=== PATIENT | male | born 1970 | race Caucasian/White ===

== ENCOUNTER 2021-03-18 12:53 | Emergency (ER) | payer OTHER, SELFPAY ==
[2021-03-18] VITALS (9 sets, daily range): BP systolic 100–132; BP diastolic 65–82; PULSE 50–81; RESP 12–18; TEMP 36.4; O2SAT 97–100
--- NOTE | ~2021-03-18 | XR_ITS ---
XR abdomen/kub 1V 03/18/2021 13:22 INDICATION: Constipation. Right upper quadrant pain. TECHNIQUE: KUB COMPARISON: No prior studies for comparison. FINDINGS: Bowel gas pattern is normal. There is no evidence of free air, mass, organomegaly, ascites or obstruction. No abnormal calculi are seen. The bones appear intact. IMPRESSION: 1: No acute abdominal abnormality identified. Reviewed, dictated and finalized at location B.
--- NOTE | ~2021-03-18 | US_ITS ---
EXAMINATION: US right upper quadrant DATE: 03/18/2021 15:54 INDICATION: Abdominal pain. TECHNIQUE: Multiple grayscale and Doppler ultrasound images of the abdomen were obtained. COMPARISON: None FINDINGS: The visualized portions of the head and body of the pancreas are normal. The liver is claudio l without focal lesion. No liver surface nodularity. There is normal flow in main portal vein. The ga llbladder is contracted. No gallstones or gallbladder wall thickening. There is a positive sonographi c Eagle sign. The common duct is normal and measures 4 mm. IMPRESSION: 1. Normal right upper quadrant ultrasound. No etiology for the positive sonographic Eagle sign. Reviewed, dictated and finalized at location A. IMPRESSION: 1. Normal right upper quadrant ultrasound. No etiology for the positive sonogra phic Eagle sign.
--- NOTE | ~2021-03-18 | XR_ITS ---
EXAMINATION: XR chest 2V 03/18/2021 13:23 INDICATION: Weakness and abdomen pain. Hypertension. Smoker. PROCEDURE: PA and lateral views of the chest COMPARISON: No prior studies for comparison. FINDINGS: The lungs are clear. The cardiomediastinal silhouette is within normal limits. There are no pleural effusions. There is no pneumothorax suspected. IMPRESSION: 1: NO ACUTE CARDIOPULMONARY DISEASE. Reviewed, dictated and finalized at location B.
--- NOTE | 2021-03-18 12:55 | ECG_ITS ---
Measurements Intervals [place] Rate: 62 P: 63 WA: 143 QRS: 53 QRSD: 86 T: 59 QT: 372 QTc: 380 Interpretive Statements SINUS RHYTHM BASELINE ARTIFACT- I, II, III, AVR, AVL NORMAL ECG Electronically Signed On 03-18-2021 13:55:56 CDT by Karri Navas D.O.
[2021-03-18 13:15] LABS: Basophils Absolute Auto 0.1 K/mm3 (0.0-0.1); Basophils Percent Auto 0.9 % (0.2-1.2); Eosinophils Absolute Auto 0.2 K/mm3 (0-0.3); Eosinophils Percent Auto 1.9 % (0-4.4); Hematocrit 41.7 % (42.0-52.0); Hemoglobin 13.6 g/dL (14.0-18.0); Immature Granulocyte Absolute 0.01 K/mm3 (0.00-0.031); Immature Granulocyte Percent A 0.1 % (0-0.5); Lymphocytes Percent Auto 21.5 % (18.3-44.2); Mean Corpuscular HGB Conc 32.6 g/dl (32-36); Mean Corpuscular Hemoglobin 28.8 pg (26-34); Mean Corpuscular Volume 88.2 fl (80-100); Mean Platelet Volume 9.9 fl (7.4-10.4); Monocytes Absolute Auto 0.7 K/mm3 (0.1-0.6); Neutrophils Absolute Auto 6.4 K/mm3 (1.3-6.7); Neutrophils Percent Auto 68.6 % (45.5-73.1); Platelet Count Result 263 k/mm3 (150-375); Red Blood Count 4.73 M/mm3 (4.6-6.20); Red Cell Distribution Width 13.2 % (11.5-14.5); White Blood Count 9.3 K/mm3 (4.5-10.0)
[2021-03-18 13:24] LABS: Lipase 51 U/L (23-300)
[2021-03-18 13:26] LABS: Alanine Aminotransferase 16 U/L (4-50); Albumin Level 4.2 g/dL (3.5-5.1); Alkaline Phosphatase 58 U/L (38-126); Anion Gap 11 mmol/L (8-16); Aspartate Amino Transferase 26 U/L (17-59); Blood Urea Nitrogen 17 mg/dL (9-20); Calcium 9.3 mg/dL (8.4-10.2); Carbon Dioxide 22 mmol/L (22-30); Chloride 106 mmol/L (98-107); Estimated CRCL calculation 94 ml/min; Estimated Glomerular Filt Rate > 60; Glucose 105 mg/dL (75-110); Potassium 4.5 mmol/L (3.4-5.0); Sodium 139 mmol/L (137-145)
[2021-03-18 14:04] LABS: Add Urine Microscopic? YES; Appearance Urine Cloudy (Clear); Bacteria Urine Trace /hpf; Bilirubin Urine Negative (Negative); Blood Urine Negative (Negative); Color Urine Yellow (Yellow); Glucose Urine UA Negative (Negative); Ketones Urine Negative (Negative); Leukocyte Esterase Ur Negative LEU/UL (Negative); Mucus Urine Heavy /lpf; Nitrate Urine Negative (Negative); Protein Urine 1+ mg/dL (Negative); Specific Grav Ur 1.026 (1.001-1.035); Squamous Epithelial Cell Urine Occasional /hpf (Few); WBC Urine 0-3 /hpf
--- NOTE | 2021-03-18 15:17 | ED.GENADULT ---
HPI - General Adult General Chief complaint: Dizziness Stated complaint: abd pain, lethargy, dizzy Time Seen by Provider: 03/18/21 14:55 History of Present Illness HPI narrative: Patient is a 51-year-old male who presents ER with multiple complaints. First complaint is right upper quadrant abdominal pain. Ongoing over the last month. No radiation. Unsure of any alleviating factors. Not associated with eating or drinking. Normal bowel movements. Reports symptoms worsen if she leans forward. Denies any injury to his abdomen. No fevers or chills or sweats. Patient did have an episode of dizziness today. Reports he has had several episodes of dizziness and was recently seen at [facility] and diagnosed with vertigo. He was prescribed meclizine. At this time he is having no symptoms other than upper abdominal discomfort. He has not contacted his primary care physician to schedule further evaluation. Patient has had no chest pain or chest pressure. He is without dyspnea. Related Data Home Medications Medication Instructions Recorded Confirmed No Home Medications 03/18/21 03/18/21 Allergies Allergy/AdvReac Type Severity Reaction Status Date / Time No Known Allergies Allergy Verified 03/18/21 15:01 Review of Systems Review of Systems: All systems reviewed & are unremarkable except as noted in HPI and below Constitutional: Constitutional: Denies chills, Denies fever(s) and Denies weakness ENT: Reports dizziness, Denies nasal congestion and Denies sore throat Cardiovascular: Cardiovascular: Denies chest pain and Denies radiating jaw, neck or arm pain Respiratory: Respiratory: Denies cough and Denies dyspnea Gastrointestinal: Gastrointestinal: Reports abdominal pain, Denies diarrhea and Denies nausea PMFSH Past Medical History Medical History (Updated 03/18/21 @ 16:57 by Timothy Mendez MD) Healthy adult male Surgical History Surgical History (Updated 03/18/21 @ 16:56 by Timothy Mendez MD) No history of previous surgery Social History Social History (Updated 03/18/21 @ 16:56 by Timothy Mendez MD) Smoking status: Never smoker Gender identity (if verbalized by the patient): Male Exam Narrative: Exam Narrative: GENERAL: Well-appearing, well-nourished, and in no acute distress. HEAD: Normocephalic, atraumatic. CHEST: Clear to auscultation. No respiratory distress. HEART: Regular rate and rhythm. Normal peripheral pulses. ABDOMEN: Soft, nontender, nondistended. EXTREMITIES: Normal range of motion. No edema. SKIN: Warm, dry, no rash. NEURO: Alert and oriented x3. PSYCH: Normal mood and affect. Course Course Emergency Course: Unremarkable evaluation. Discharge home. Follow-up with PCP. Vital Signs Vital signs: Vital Signs Temperature 97.5 F L 03/18/21 13:02 Pulse Rate 73 03/18/21 13:02 Respiratory Rate 18 03/18/21 13:02 Blood Pressure 112/65 03/18/21 13:02 Pulse Oximetry 97 03/18/21 13:02 Temperature 97.5 F L 03/18/21 13:02 Pulse Rate 57 L 03/18/21 16:28 Respiratory Rate 12 03/18/21 15:49 Blood Pressure 127/76 03/18/21 16:28 Pulse Oximetry 98 03/18/21 15:49 Medical Decision Making Vital Signs Vital Signs: Vital Signs Temperature 97.5 F L 03/18/21 13:02 Pulse Rate 73 03/18/21 13:02 Respiratory Rate 18 03/18/21 13:02 Blood Pressure 112/65 03/18/21 13:02 Pulse Oximetry 97 03/18/21 13:02 Temperature 97.5 F L 03/18/21 13:02 Pulse Rate 57 L 03/18/21 16:28 Respiratory Rate 12 03/18/21 15:49 Blood Pressure 127/76 03/18/21 16:28 Pulse Oximetry 98 03/18/21 15:49 Lab Data Result diagrams: 03/18/21 13:08 03/18/21 13:08 Labs: Lab Results 03/18/21 03/18/21 03/18/21 Range/Units 13:08 13:08 13:08 WBC 9.3 (4.5-10.0) K/mm3 RBC 4.73 (4.6-6.20) M/mm3 Hgb 13.6 L (14.0-18.0) g/dL Hct 41.7 L (42.0-52.0) % MCV 88.2 (80-100) fl MCH 28.8
[2021-03-18] MEDS: SODIUM CHLORIDE 0.9% IV 1,000 ML 999 ML IV CONT (15:48)
== END 2021-03-18 17:12 | disposition home or self-care (01) ==
PROVIDERS: Emergency Medicine; Emergency Provider Emergency Medicine; PCP Family Medicine
DX: R10.13 Epigastric pain (principal)
CPT/HCPCS: 36415; 71046; 74018; 76705; 80053; 81001; 83690; 85025; 93005; 96360; 99284; J7030

== ENCOUNTER 2021-07-01 11:21 | Emergency (ER) | payer OTHER, SELFPAY ==
[2021-07-01 11:29] VITALS: BP 123/79; PULSE 61; RESP 16; TEMP 36.4; O2SAT 99
--- NOTE | 2021-07-01 12:07 | ED.GENADULT ---
HPI - General Adult General Chief complaint: Back Pain/Injury <Drake Ruiz PA-C - Last Filed: 07/01/21 12:13> Stated complaint: back pain <Drake Ruiz PA-C - Last Filed: 07/01/21 12:13> Time Seen by Provider: 07/01/21 11:47 <Drake Ruiz PA-C - Last Filed: 07/01/21 12:13> Source: patient, family and RN notes reviewed <Drake Ruiz PA-C - Last Filed: 07/01/21 12:13> Mode of arrival: ambulatory <Drake Ruiz PA-C - Last Filed: 07/01/21 12:13> Limitations: no limitations <Drake Ruiz PA-C - Last Filed: 07/01/21 12:13> History of Present Illness HPI narrative: Patient is a 51-year-old male who presents with mid lower back pain that began 2 days ago while getting out of bed notes that he may have twisted awkwardly denies other complaints specifically no loss of feeling or function of extremities or any bladder or bowel incontinence or any fever chills night sweats. On arrival patient in the room nondistressed does not appear uncomfortable presents with normal gait <Drake Ruiz PA-C - Last Filed: 07/01/21 12:13> Related Data Home medications: Home Medications Medication Instructions Recorded Confirmed No Home Medications 03/18/21 03/18/21 <Drake Ruiz PA-C - Last Filed: 07/01/21 12:13> Allergies/adverse reactions: Allergies Allergy/AdvReac Type Severity Reaction Status Date / Time No Known Allergies Allergy Verified 03/18/21 15:01 <Drake Ruiz PA-C - Last Filed: 07/01/21 12:13> Review of Systems Review of Systems: All systems reviewed & are unremarkable except as noted in HPI and below <Drake Ruiz PA-C - Last Filed: 07/01/21 12:13> PMFSH Past Medical History Medical History: Medical History Healthy adult male <LILI Castellano Last Filed: 07/01/21 12:13> Surgical History Surgical History: Surgical History No history of previous surgery <Drake Ruiz PA-C - Last Filed: 07/01/21 12:13> Social History Social History: Social History Smoking status: Never smoker Gender identity (if verbalized by the patient): Male <Drake Ruiz PA-C - Last Filed: 07/01/21 12:13> Exam Narrative: GENERAL: Well-appearing, well-nourished, and in no acute distress. HEAD: Normocephalic, atraumatic. EYES: PERRLA and EOMI. ENT: Nares clear, no rhinorrhea or epistaxis. Mucous membranes moist. CHEST: Clear to auscultation. No respiratory distress. No wheezes rales or rhonchi HEART: Regular rate and rhythm. No murmur heard. EXTREMITIES: Normal range of motion. No edema. Mid lumbar tenderness to palpation no other deformities SKIN: Warm, dry, no rash. NEURO: No focal deficits. Alert and oriented x3. Cranial nerves II through XII grossly intact. Normal speech and gait PSYCH: Normal mood and affect. <Drake Ruiz PA-C - Last Filed: 07/01/21 12:13> Course Course Emergency Course: Patient presented with low back pain no concerning findings otherwise no signs of infection ABCs and vital signs intact and stable be sent home on medications with primary care follow-up he agrees with this treatment plan <Drake Ruiz PA-C - Last Filed: 07/01/21 12:13> Vital Signs Vital signs: Vital Signs Temperature 97.6 F 07/01/21 11:29 Pulse Rate 61 07/01/21 11:29 Respiratory Rate 16 07/01/21 11:29 Blood Pressure 123/79 07/01/21 11:29 Pulse Oximetry 99 07/01/21 11:29 Temperature 97.6 F 07/01/21 12:41 Pulse Rate 61 07/01/21 11:29 Respiratory Rate 16 07/01/21 11:29 Blood Pressure 123/79 07/01/21 11:29 Pulse Oximetry 99 07/01/21 11:29 <Drake Ruiz PA-C - Last Filed: 07/01/21 12:13> Medical Decision Making MDM Narrative Medical decision making narrative:
[2021-07-01] MEDS: KETOROLAC (*BKC) 60 MG/2 ML VIAL IM (12:26)
[2021-07-01 12:41] VITALS: TEMP 36.4
== END 2021-07-01 12:36 | disposition home or self-care (01) ==
PROVIDERS: Emergency Provider General Practice; PCP Family Medicine
DX: M54.5 Low back pain (principal)
CPT/HCPCS: 96372; 99283; J1885

== ENCOUNTER 2021-07-03 11:38 | Emergency (ER) | payer OTHER, SELFPAY ==
[2021-07-03 11:48] VITALS: BP 124/70; PULSE 75; RESP 16; TEMP 36.4; O2SAT 100
--- NOTE | 2021-07-03 12:28 | PC.NURSE ---
1209- pt noted ambulating out of ED . Friend at side. No distress noted.
== END 2021-07-04 02:35 | disposition left against medical advice (07) ==
LOC: ANHED 12:37
PROVIDERS: PCP Family Medicine
DX: M54.5 Low back pain (principal)
CPT/HCPCS: 99199

== ENCOUNTER 2023-11-07 09:46 | Outpatient (CLI) | payer OTHER, SELFPAY ==
[2023-11-07 18:47] LABS: Alanine Aminotransferase 23 U/L (6-50); Albumin Level 4.3 g/dL (3.5-5.1); Alkaline Phosphatase 61 U/L (38-126); Anion Gap 5 mmol/L (8-16); Aspartate Amino Transferase 29 U/L (17-59); Bilirubin,Total 0.8 mg/dL (0.2-1.3); Blood Urea Nitrogen 16 mg/dL (9-20); Calcium 9.4 mg/dL (8.4-10.2); Carbon Dioxide 28 mmol/L (22-30); Chloride 104 mmol/L (98-107); Cholesterol 239 mg/dL (0-200); Estimated Glomerular Filt Rate > 60; Glucose 105 mg/dL (65-110); HDL Direct 42 mg/dL; Sodium 137 mmol/L (137-145); Triglycerides 90 mg/dL (<150)
[2023-11-07 19:00] LABS: LDL Cholesterol Direct 169 mg/dL
[2023-11-07 19:16] LABS: Prostate Specific Antigen 3.2 ng/mL (< OR = 4.0)
[2023-11-07 19:21] LABS: Basophils Absolute Auto 0.1 K/mm3 (0.0-0.1); Basophils Percent Auto 0.5 % (0.2-1.2); Eosinophils Absolute Auto 0.2 K/mm3 (0-0.3); Eosinophils Percent Auto 1.9 % (0-4.4); Hematocrit 42.2 % (42.0-52.0); Hemoglobin 13.2 g/dL (14.0-18.0); Immature Granulocyte Absolute 0.01 K/mm3 (0.00-0.031); Immature Granulocyte Percent A 0.1 % (0-0.5); Lymphocytes Absolute Auto 2.36 K/mm3 (0.9-3.2); Lymphocytes Percent Auto 24.5 % (18.3-44.2); Mean Corpuscular HGB Conc 31.3 g/dl (32-36); Mean Corpuscular Hemoglobin 28.1 pg (26-34); Mean Corpuscular Volume 89.8 fl (80-100); Mean Platelet Volume 10.5 fl (7.4-10.4); Monocytes Absolute Auto 0.7 K/mm3 (0.1-0.6); Monocytes Percent Auto 7.6 % (2.6-8.5); Neutrophils Absolute Auto 6.3 K/mm3 (1.3-6.7); Neutrophils Percent Auto 65.4 % (45.5-73.1); Platelet Count Result 300 k/mm3 (150-375); Red Cell Distribution Width 14.2 % (11.5-14.5); White Blood Count 9.6 K/mm3 (4.5-10.0)
[2023-11-07 21:30] LABS: Hemoglobin A1C 5.9 % (<5.7)
== END 2023-11-07 09:47 | disposition home or self-care (01) ==
LOC: ANHGOSHLAB 09:48
PROVIDERS: PCP Internal Medicine; Visit Provider Nurse Practitioner
DX: Z12.5 Encounter for screening for malignant neoplasm of prostate (principal); E11.9 Type 2 diabetes mellitus without complications
CPT/HCPCS: 36415; 80053; 80061; 83036; 84153; 85025; G0103

== ENCOUNTER 2024-02-06 07:35 | Outpatient (CLI) | payer OTHER, SELFPAY ==
--- NOTE | ~2024-02-06 | MR_ITS ---
MRI of the cervical spine Clinical History: Radiculopathy Technique: Axial T2-weighted and gradient images, and sagittal T1-weighted, T2-weighted, and STIR radhika ges were acquired. Findings: There is no fracture or subluxation of the cervical spine. No suspicious bone marrow signal abnormality seen. At C2-C3, there is minimal disc bulge. There is mild facet arthropathy. There is probable mild left n eural foraminal narrowing. Right neural foramen preserved. No central canal stenosis or cord compress ion. At C3-C4, there is degenerative disc narrowing with disc osteophyte complex and mild canal stenosis, but no mumtaz cord compression. There is bilateral facet arthropathy and bilateral neural foraminal na rrowing. At C4-C5, there is mild disc osteophyte complex, without spinal canal stenosis or cord compression. T here is bilateral facet arthropathy with bilateral neural foraminal narrowing, left worse than right. At C5-C6, there is moderate degenerative disc narrowing. There is disc osteophyte complex with modera te to moderate canal stenosis and minimal ventral cord flattening. There is bilateral neural foramina l narrowing with associated bilateral facet arthropathy. At C6-C7, there is moderate degenerative disc narrowing. There is minimal disc osteophyte complex, wi thout mumtaz canal stenosis or cord compression. There is bilateral neural foraminal narrowing with bi lateral facet arthropathy. No abnormal signal seen in the spinal cord. Paravertebral soft tissues are unremarkable. Impression: Moderate degenerative spondylosis throughout the cervical spine, as detailed above. Reviewed, dictated and finalized at [facility]. Impression: Moderate degenerative spondylosis throughout the cervical spine, as detailed ab ruddye.
== END 2024-02-06 07:36 | disposition home or self-care (01) ==
PROVIDERS: PCP Nurse Practitioner; Visit Provider Nurse Practitioner
DX: M47.22 Other spondylosis with radiculopathy, cervical region (principal)
CPT/HCPCS: 72141

== ENCOUNTER 2024-07-11 08:48 | Outpatient (NON) | payer OTHER, SELFPAY | END 2024-07-11 08:49 | disposition home or self-care (01) | LOC: ANHLAB 07-12 08:49 | PROVIDERS: PCP Internal Medicine; Visit Provider Internal Medicine | DX: Z12.11 Encounter for screening for malignant neoplasm of colon (principal); D12.5 Benign neoplasm of sigmoid colon | CPT/HCPCS: 88305 ==

== ENCOUNTER 2024-07-11 11:10 | Day surgery (SDC) | payer OTHER, SELFPAY ==
[2024-06-28 06:08] VITALS: BMI 25.1
[2024-06-28 14:51] VITALS: BMI 25.0
[2024-07-11 11:38] VITALS: BP 101/67; PULSE 61; RESP 16; TEMP 37; O2SAT 98
[2024-07-11] MEDS: LACTATED RINGERS 1,000 ML 150 ML IV CONT (11:43)
--- NOTE | 2024-07-11 12:20 | PM.HPGS ---
History of Present Illness History of Present Illness Consent: Risks, benefits, and alternatives have been discussed and questions answered. Patient agrees to proceed with procedure. Chief complaint: Screening Neoplasm of Colon Narrative: Obed Marvin is a 54 year old male presents for screening colonoscopy. Patient's current weight appetite and bowel movements are normal. Patient denies abdominal pain. He has had no bleeding. Family history is noncontributory. Patient has a past medical history of Hodgkin's lymphoma. Currently followed in [place]. Review of Systems Review of Systems: All systems reviewed & are unremarkable except as noted in HPI and below PMFSH Past Medical History Medical History (Updated 07/11/24 @ 06:59 by Roger Hoffman DO) Cardiomyopathy Diabetes History of blood clots DVT right arm 2022 Hodgkins lymphoma 2023 Surgical History Surgical History No history of previous surgery Social History Social History (Updated 06/20/24 @ 13:44 by Brittney Main CMA) Smoking status: Current some day smoker Tobacco type: cigarettes Second hand tobacco smoke exposure: Yes Additional smoking assessment comments: 2 packs per week Alcohol intake: never Substance use: never Substance use type: does not use Do You Feel Safe in your Home?: Yes Lack of Transportation: No Lack of Food: Never True Current Housing: I Have Housing Concerned About Future Housing: No Difficulty Paying Gas/Electric Bills: No Difficulty Paying for Meds: No Currently Unemployed: No Education: High School Diploma/GED Difficulty w/ Childcare or Family Care: No Living arrangements: with family Gender identity (if verbalized by the patient): Male Spiritual care concerns: No Meds Home Medications and Allergies Home Medications Medication Instructions Recorded Confirmed Type ferrous sulfate 1 cap PO DAILY 06/20/24 07/11/24 History ibuprofen 200 mg tablet 200 mg PO Q6H PRN Pain, Mild 06/20/24 07/11/24 History levothyroxine 25 mcg tablet 25 mcg PO DAILY 06/20/24 07/11/24 History Allergies Allergy/AdvReac Type Severity Reaction Status Date / Time No Known Allergies Allergy Verified 07/11/24 11:37 Vital Signs Vital Signs - 24 hr 07/11/24 11:38 Temperature 98.6 F Pulse Rate 61 Respiratory Rate 16 Blood Pressure 101/67 Pulse Oximetry 98 Oxygen Delivery Room Air Exam Narrative: Physical exam reveals patient to be alert. Vital signs stable. HEENT exam is unremarkable. Patient is anicteric. Lungs are clear to auscultation and percussion heart is without murmur or extra sounds. Abdominal exam bowel sounds are present soft nontender with no organomegaly. Digital external rectal exam normal. Assessment and Plan Assessment and plan (1) Screening for colon cancer: Code(s): Z12.11 - Encounter for screening for malignant neoplasm of colon Status: Acute Assessment and Plan: Patient presents for neoplasia screening colonoscopy. Appears to be at average risk for colon polyps. (2) Hodgkins lymphoma: Qualifiers: Hodgkin lymphoma type: unspecified type Lymphoma site: lower extremity Qualified Code(s): C81.95 - Hodgkin lymphoma, unspecified, lymph nodes of inguinal region and lower limb Code(s): C81.90 - Hodgkin lymphoma, unspecified, unspecified site Status: Acute
--- NOTE | 2024-07-11 13:24 | P.PNAN_ITS ---
Anes - Initial Pre Proc Eval Procedure: Operation Date: 07/11/24 13:00 Proposed Procedures p Screening Colonoscopy - Ezekiel Ramsey MD Date/Time: 07/11/24 13:24 Surgeon: Ezekiel Ramsey MD Pre Op Diagnosis: Screening Neoplasm of Colon Patient Data Age: 54 Gender: M Height: 1.75 m Weight: 73.75 kg Last Vital Signs Temp 37.0 C 07/11/24 11:38 Pulse 61 07/11/24 11:38 Resp 16 07/11/24 11:38 BP 101/67 07/11/24 11:38 Pulse Ox 98 07/11/24 11:38 O2 Del Method Room Air 07/11/24 11:38 Allergies Allergy/AdvReac Type Severity Reaction Status Date / Time No Known Allergies Allergy Verified 07/11/24 11:37 Home Medications Medication Instructions Recorded Confirmed Type ferrous sulfate 1 cap PO DAILY 06/20/24 07/11/24 History ibuprofen 200 mg tablet 200 mg PO Q6H PRN Pain, Mild 06/20/24 07/11/24 History levothyroxine 25 mcg tablet 25 mcg PO DAILY 06/20/24 07/11/24 History Patient hx anesthesia problems: none Family hx anesthesia problems: none Results Review: All pre-operative results and documents have been reviewed as part of the pre- operative evaluation. [facility] Past Medical History Medical History (Updated 07/11/24 @ 06:59 by Roger Hoffman DO) Cardiomyopathy Diabetes History of blood clots DVT right arm 2022 Hodgkins lymphoma 2023 Surgical History Surgical History No history of previous surgery Social History Social History (Updated 06/20/24 @ 13:44 by Brittney Main CMA) Smoking status: Current some day smoker Tobacco type: cigarettes Second hand tobacco smoke exposure: Yes Additional smoking assessment comments: 2 packs per week Alcohol intake: never Substance use: never Substance use type: does not use Do You Feel Safe in your Home?: Yes Lack of Transportation: No Lack of Food: Never True Current Housing: I Have Housing Concerned About Future Housing: No Difficulty Paying Gas/Electric Bills: No Difficulty Paying for Meds: No Currently Unemployed: No Education: High School Diploma/GED Difficulty w/ Childcare or Family Care: No Living arrangements: with family Gender identity (if verbalized by the patient): Male Spiritual care concerns: No Anes - Eval Final PreProcedure Day of Procedure 07/11/24 13:24 Patient weight: normal Heart: regular rate and rhythm Lungs: clear to auscultation and normal air movement Airway: Mallampati scale class II Neurological: alert and oriented Last oral intake: >/= 8 hours ASA classification: III Emergent: no Anesthetic plan: proceed Anesthesia type and monitoring: general GIVS and standard monitoring Results Review: All pre-operative results and documents have been reviewed as part of the pre- operative evaluation. Informed Consent: The patient's anesthetic plan and its attendant risks and benefits were discussed with the patient/family/POA. Questions were solicited and answers provided to the satisfaction of the patient/family/POA.
[2024-07-11 13:53] VITALS: BP 93/66; PULSE 69; RESP 16; O2SAT 98
--- NOTE | 2024-07-11 14:02 | WPDANESPN ---
Anes - Prog Note Post-Op Date/Time: 07/11/24 14:02 Cardiovascular status: normal Respiratory status: normal Airway patency: baseline Mental status: baseline Post-Op hydration status: normal Vital Signs: Last Vital Signs Temp 37.0 C 07/11/24 11:38 Pulse 69 07/11/24 13:53 Resp 16 07/11/24 13:53 BP 93/66 L 07/11/24 13:53 Pulse Ox 98 07/11/24 13:53 O2 Del Method Room Air 07/11/24 13:53 Pain Score (VAS): 0 I/O: Intake & Output 07/10/24 07/11/24 07/11/24 23:59 07:59 15:59 Intake Total 700 Balance 700 Post-procedural complaints: none Patient Feedback: Patient satisfied with anesthetic care. Other Findings: Patient vital signs back to baseline. Patient denies nausea and vomiting. Patient's pain under control. Patient OK for discharge.
[2024-07-11 14:03] VITALS: BP 101/64; PULSE 63; RESP 15; O2SAT 98
[2024-07-11 14:13] VITALS: BP 107/68; PULSE 50; RESP 15; O2SAT 99
== END 2024-07-11 14:21 | disposition home or self-care (01) ==
PROVIDERS: PCP Internal Medicine; Visit Provider Internal Medicine Gastroenterology
PROC: 0DJD8ZZ Inspection of Lower Intestinal Tract, Via Natural or Artificial Opening Endoscopic (ICD-10-PCS; CPT 45378; principal; 2024-07-11 13:00)
DX: Z12.11 Encounter for screening for malignant neoplasm of colon (principal); D12.5 Benign neoplasm of sigmoid colon
CPT/HCPCS: 45385

== ENCOUNTER 2025-01-14 10:49 | Emergency (ER) | payer OTHER, SELFPAY ==
[2025-01-14 11:01] VITALS: BP 123/75; PULSE 62; RESP 16; TEMP 36.5; O2SAT 99
--- NOTE | 2025-01-14 11:14 | ED.EAR ---
HPI - Ear Problem General Chief complaint: Ear Stated complaint: Ear Pain/Rash Source: patient Mode of arrival: ambulatory Limitations: no limitations History of Present Illness HPI Narrative: 54 y/o male with hx diabetes and hodgkins lymphoma presented for 2 concerns. Pt reports bilateral ear pain and rash to right lower abdomen. Endorses itchy red rash to right lower abdomen x2 weeks. Says it was improving with benadryl ointment, but flared up yesterday and is spreading. Denies pain or drainage to the rash. Denies lip, tongue, or throat swelling, shortness of breath or wheezing. Denies changes to soap, detergent, lotion, or any other exposures. No one else in the house or any contacts with similar symptoms. Pt also reports chronic ear drainage and right ear ringing, [facility]. Says he started with ear pain which is unusual for him, and feels like he has sores in the ears. Says the ears have not been draining like normal. Endorses occasional dizziness and headache. MD Complaint: ear pain Related Data Allergies Allergy/AdvReac Type Severity Reaction Status Date / Time No Known Allergies Allergy Verified 08/13/24 18:26 Review of Systems Review of Systems: CONSTITUTIONAL: Denies malaise, chills, or fever. EYES: Denies visual changes, redness, or discharge. ENT: Denies rhinorrhea, congestion, sinus pain, and sore throat. Reports ear pain, drainage, ringing CARDIOVASCULAR: Denies chest pain, palpitations, or edema. RESPIRATORY: Denies cough or dyspnea. GASTROINTESTINAL: Denies abdominal pain, nausea, vomiting, diarrhea SKIN: reports rash, itching. MUSCULOSKELETAL: Denies myalgia. NEUROLOGIC: Denies headache. All systems reviewed & are unremarkable except as noted in HPI and below [facility] Past Medical History Medical History (Updated 01/14/25 @ 11:30 by Yissel Hook APRN) Cardiomyopathy Diabetes Hodgkins lymphoma 2023 History of blood clots DVT right arm 2022 Surgical History Surgical History No history of previous surgery Social History Social History (Updated 01/14/25 @ 11:37 by Yissel Hook APRN) Smoking status: Current some day smoker Tobacco type: cigarettes Second hand tobacco smoke exposure: Yes Additional smoking assessment comments: 1PPD (01/14/25) Alcohol intake: never Substance use: never Substance use type: does not use Do You Feel Safe in your Home?: Yes Lack of Transportation: No Lack of Food: Never True Current Housing: I Have Housing Concerned About Future Housing: No Difficulty Paying Gas/Electric Bills: No Difficulty Paying for Meds: No Currently Unemployed: No Education: High School Diploma/GED Difficulty w/ Childcare or Family Care: No Living arrangements: with family Gender identity (if verbalized by the patient): Male Spiritual care concerns: No Comments At time of signature, agree with nursing past medical, surgical, social and family history. There is no relevant family history pertinent to the presenting complaint Exam Narrative: GENERAL: Well-appearing EYES: conjunctivae clear ENT: Nares clear. Mucous membranes moist. TMs pearly andrews with dull light reflex and purulent effusion bilaterally, Left TM with chronic hole; no tragal tenderness. NECK: Supple. No lymphadenopathy CHEST: Clear to auscultation, breath sounds equal. HEART: Regular rate and rhythm. SKIN: Warm, dry, RLQ with erythematous irregular area of light erythema, slightly raised. No blisters/vesicles, nontender. NEURO: Alert and oriented x3. PSYCH: Normal mood and affect Course Course Emergency Course: Patient is aware of diagnosis, understands and agrees to treatment plan. Anticipatory guidance given. Patient agrees to follow-up as directed and is aware of reasons to seek care at the emergency department. Portions of this record may have been created with voice recognition software Level of Care: Express Care Visit Vital Signs Vital signs: Vital Signs Temperature 97.7 F 01/14/25 11:01 Pulse Rate 62 01/14/25 11:01 Respiratory Rate 16 01/14/25 11:01 Blood Pressure 123/75 01/14/25 11:01 Pulse Oximetry 99 01/14/25 11:01 Temperature 97.7 F 01/14/25 11:01 Pulse Rate 62 01/14/25 11:01 Respiratory Rate 16 01/14/25 11:01 Blood Pressure 123/75 01/14/25 11:01 Pulse Oximetry 99 01/14/25 11:01 Reviewed Medical Decision Making MDM Narrative Medical decision making narrative: Discussed physical exam findings consistent with bilateral AOM and right lower quadrant dermatitis. Reviewed Rx. Advised supportive measures and signs/symptoms to go to the ER. Patient is appropriate for outpatient treatment and follow-up. Differential Diagnosis Differential Diagnosis: Coronavirus, strep pharyngitis, allergic rhinitis, upper respiratory tract infection, sinusitis, rhinosinusitis, nasopharyngitis, viral pharyngitis, otitis media, otitis externa, eustachian tube dysfunction, foreign body, cerumen impaction. Vital Signs Vital Signs: Vital Signs Temperature 97.7 F 01/14/25 11:01 Pulse Rate 62 01/14/25 11:01 Respiratory Rate 16 01/14/25 11:01 Blood Pressure 123/75 01/14/25 11:01 Pulse Oximetry 99 01/14/25 11:01 Temperature 97.7 F 01/14/25 11:01 Pulse Rate 62 01/14/25 11:01 Respiratory Rate 16 01/14/25 11:01 Blood Pressure 123/75 01/14/25 11:01 Pulse Oximetry 99 01/14/25 11:01 Discharge Plan Discharge Clinical Impression: Otitis media, Dermatitis Patient Disposition: Home Condition: Stable Instructions: Antibiotic Form, Ear Infection (ED), Dermatitis (ED) Additional Instructions: Rash: Wash with gentle soap and water only. Use skin cream such as Benadryl or calamine to reduce itchiness Take Zyrtec or Claritin according to package directions Take steroid as directed Avoid scratching when possible to prevent worsening of the condition and disruption of the skin that could lead to bacterial infection To relieve itching, place a cool washcloth or some ice over the area that itches, rather than scratching Avoid scented products (soap, lotion, detergent etc) Go to the ER if rash worsens or you have chest pain, trouble breathing, become hoarse, or start wheezing, develop belly cramps, vomiting or feel dizzy. Ears: Take antibiotics as directed. antihistamine such as Benadryl, Zyrtec or Paz for sinus congestion Tylenol 1000mg every 8 hours as needed to reduce pain Please schedule a follow-up visit with your personal physician today. If your symptoms persist, change or worsen significantly, go to the emergency department for further evaluation. Patient Language: Nepali Prescriptions: New methylprednisolone [Medrol (Hai)] 4 mg tablets,dose pack See Rx Instructions .ROUTE .COMPLEX Qty: 21 0RF Rx Instructions: orally per package directions amoxicillin-pot clavulanate 875-125 mg tablet 1 tablet PO Q12H 7 Days Qty: 14 0RF Follow-up/Referrals: Casey Bales DO [Primary Care Provider] - Time of Disposition: 11:31
== END 2025-01-14 11:36 | disposition home or self-care (01) ==
PROVIDERS: Emergency Provider Nurse Practitioner Family; PCP Internal Medicine
DX: H66.93 Otitis media, unspecified, bilateral (principal); L30.9 Dermatitis, unspecified; F17.210 Nicotine dependence, cigarettes, uncomplicated; I42.9 Cardiomyopathy, unspecified; E11.9 Type 2 diabetes mellitus without complications; Z86.718 Personal history of other venous thrombosis and embolism; Z85.71 Personal history of Hodgkin lymphoma
CPT/HCPCS: 99213; G0463

== ENCOUNTER 2025-03-11 13:40 | Outpatient (CLI) | payer OTHER, SELFPAY ==
--- OUTSIDE RECORDS SUMMARY | 2025-03-11 13:56 | XMS_ITS | Clinical Summary ---
Author Organization [facility] Medical Office Building [address] Address [address] [place] [address] Care Team Providers Care Mri Technologist Name Role Phone Moshe Nina MD Unavailable Sebas Cruz MD Unavailable [phone] Casey Bales DO Primary Care Provider [phone] Allergies No known active allergies Medications ergocalciferol (VITAMIN D) 50,000 unit capsule Take 1 capsule (50,000 Units total) by mouth 06/02/20 22 Active tobramycin-dexAMET Hasone (TOBRADEX) ophthalmic solution Administer 2 drops into both eyes 4 (four) times a day IF NO IMPROVEMENT AFTER 2 DAYS SEE PCP OR MAJOR GIFTS MANAGER . IF IMPROVES AFTER 2 DAYS DECREASE TO ONE DROP IN EACH EYE 4 TIMES A DAY 5-7 DAYS 5 mL 12/24/19 23 Active Additional Information Patient not taking.Reported on 08/17/2024 apixaban (ELIQUIS) 5 mg tabletIndications: Venous Thrombosis Take 1 tablet (5 mg total) by mouth 2 (two) times a day 60 tablet 5 03/16/20 23 Active Additional Information Patient not taking.Reported on 08/17/2024 docusate sodium (Colace) 100 mg capsuleIndications :constipation Take 1 capsule (100 mg total) by mouth 2 (two) times a day for 14 days 28 capsule 05/04/20 23 Active Additional Information Patient not taking.Reported on 08/17/2024 atorvastatin (LIPITOR) 10 mg tablet 10 MG ORALLY EVERY DAY AT BEDTIME Active baclofen (LIORESAL) 10 mg tablet Take 1 tablet (10 mg total) by mouth 02/03/20 24 Active cholecalciferol 25 mcg (1,000 unit) tablet 1 tablet (1,000 Units total) 02/17/20 23 Active varenicline tartrate (CHANTIX) 1 mg tablet Take 1 tablet (1 mg total) by mouth 2 (two) times a day 11/07/19 24 Active ferrous sulfate ER (SLOW IRON) 140 mg (45 mg of elemental iron) tabletIndications: Iron Deficiency Anemia Take 1 tablet (140 mg total) by mouth 2 (two) times a day with meals 60 tablet 2 05/07/20 24 Active Additional Information Patient not taking.Reported on 12/28/2024 Slow Fe 137 mg (45 mg iron) tablet extended release 05/09/20 24 Active levothyroxine (SYNTHROID) 25 mcg tabletIndications: Iron deficiency anemia, unspecified iron deficiency anemia type,Other specified hypothyroidism TAKE 1 TABLET (25 MCG TOTAL) BY MOUTH CERTIFIED FINANCIAL PLANNER BEFORE BREAKFAST 30 tablet 2 08/15/20 24 Active Additional Information Patient not taking.Reported on 12/28/2024 meloxicam (MOBIC) 15 mg tablet TAKE 1/2 TABLET BY MOUTH TWO TIMES DAILY 30 tablet 09/11/20 24 Active Additional Information Patient not taking.Reported on 12/28/2024 Active Problems Patient Care Coordination No te Formatting of this note migh t be different from the original. Upcoming Clinic Visit: 08/20/24 R RF lac c/f flexor tendon injury. Possible Op discussion XR's (Orders Signed) Problem Noted Date Diagnosed Date Alcohol abuse 09/03/2024 Alcohol dependence, continuous 09/03/2024 Amphetamine and psychostimulant dependence 09/03 Anemia 09/03/2024 Anxiety state 09/03/2024 Cannabis abuse 09/03/2024 Cannabis dependence 09/03/2024 Complex posttraumatic stress disorder 09/03/2024 Exposure to potentially hazardous substance 08/11 Unspecified hearing loss, unspecified ear 2023 Hearing loss 09/03/2024 Heel pain 09/03/2024 Lack of housing 09/03/2024 Leukopenia 09/03/2024 Major depression 09/03/2024 Mixed conductive and sensorineural hearing loss, bilateral 09/03/2024 Moderate episode of recurrent major depressive d isorder 09/03/2024 Neck pain 09/03/2024 Proteinuria 09/03/2024 Type 2 diabetes mellitus 09/03/2024 Vitamin D deficiency 09/03/2024 Laceration of flexor muscle, fascia and tendon of right little finger at wrist and hand level, initial encounter 08/17/2024 Left groin pain 05/10/2024 Assessment & Plan (05/10/2024 3:34 PM CDT): He does have some pain on palpation but I do not notice any clear-cut hernia. I will review the MRI with Radiology. After this we will call and discuss further course of action with the patient. He is in understanding of the plan. Until then he can try ice and heat or an anti-inflammatory. He does seem to think that it started after some increasing activity so it may just be musculoskeletal. Nodule of parotid gland 02/14/2024 Assessment & Plan (02/14/2024 8:03 AM CDT): Avoid ear cleaning techniques Avoid water to ears Call with ear drainage Ultrasound of the Parotid glands ATTN on the Right Parotid Biopsy based on these findings Personal interpretation of PET scan: minimal uptake diffusely along nasopharynx with prominence of the right lateral nasopharynx, right tail of parotid uptake Nasal disorder 02/14/2024 Assessment & Plan (02/14/2024 8:00 AM CDT): Inflammation without masses or lesions Adjustment and management of vascular access dev ice 03/22/2023 CINV (chemotherapy-induced nausea and vomiting) 10/18/2022 Chemotherapy induced neutropenia 09/15/2022 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 We will set him up for a Port-A-Cath placement for initiation of chemotherapy. We have discussed at times wound healing can be an issue as the cancer may impair this. We will see what happens as they initiate chemotherapy. He is in understanding of the plan. Lymphadenopathy, inguinal 05/17/2022 Assessment & Plan (06/08/2022 8:49 AM CDT): We will set the patient up for an excision of a left inguinal lymph node. Postoperative complications such as wound infection and opening have been discussed. We discussed timing of pathology returned and possible outcomes for the pathology results. They are in understanding of the plan. Dental abscess 01/19/2022 Left atrial enlargement 01/09/2021 Vertigo 01/09/2021 Tobacco dependence syndrome 11/20/2018 Abnormal echocardiogram 11/20/2018 Acute bronchitis 10/30/2018 Cardiomyopathy 10/30/2018 Helicobacter pylori gastrointestinal tract infec tion 10/30/2018 Sleep apnea 10/30/2018 Neurological deficit present 01/20/2018 Urinary tract infectious disease 01/20/2018 Fatigue 06/23/2017 Gastroesophageal reflux disease 06/23/2017 Hyperlipidemia 06/23/2017 Prediabetes 06/23/2017 Subclinical hypothyroidism 06/23/2017 Bipolar I disorder 06/02/2017 Cervical radiculopathy 06/02/2017 Elevated blood-pressure read ing without diagnosis of hypertension 06/02/2017 Muscle spasms of neck 06/02/2017 Osteoarthritis of knee 06/02/2017 Shortness of breath 06/02/2017 Encounters Date Type Department Care Team Description 12/28/2024 2:15 PM CDT Office Visit 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 [address] [place] [address] Medical Office [facility] [address] [place] [address] Sarah Barrow CLT 12/11/[address] [facility] [address] [place] [address] Office [facility] [address] [place] [address] Sarah Barrow, CLT from Last 3 Months Immunizations Immunization Administration Dates Next Due Hep A, Adult 07/11/2019 Influenza, Quadrivalent, Rec ombinant, Egg Free, Preservative Free, Intramuscular 06/01/2017 Influenza, Quadrivalent, Spl it, Preservative Free, Intradermal 06/01/2017 Influenza, Trivalent, IM (MDV) 07/11/2019 Influenza, Trivalent, Preser vative Free, Intramuscular 07/11/2019,09/11/2015 Influenza, Unspecified 08/10/2018,06/29/2013, Moderna SARS-CoV-2 Monovalen t Vaccination (12+ YRS) 04/01/2021,03/04/2021 Pneumococcal Polysaccharide PPV23 03/22/2019, Td, Unspecified 09/11/2012 Tdap 06/20/2024,02/07/2019,06/01/2017 Surgical History Surgery Date Site/Laterality Comments LYMPH NODE BIOPSY 06/15/2022 Left Inguinal Medical History Medical History Date Comments Thyroid disease Lymphadenopathy Lymphadenopathy, inguinal 05/17/2022 Sleep apnea Depression 2020 Anxiety Lymphoma, Hodgkin's (HCC) 06/18/2022 Nodular lymphocyte predominant Hodgkin lymphoma (HCC) 07/02/2022 Chemotherapy induced neutropenia 09/15/2022 Lung disease DVT of axillary vein, acute (HCC) right arm Diabetes mellitus (HCC) CINV (chemotherapy-induced nausea and vomiting) 10/18/2022 Social History Tobacco Use Types Packs/Day Years Used Date Smoking Tobacco: Every Day Cigarettes 0.4 2.7 Started: 06/24/2022 Passive Smoke Exposure: Current Smokeless Tobacco: Current Chew Tobacco Cessation:Ready to Q uit: Not Asked; Counseling Given: Not Answered Alcohol Use Standard Drinks/Week Comments Not Currently 0 (1 standard drink = 0.6 oz pur e alcohol) AUDIT-C Answer Date Recorded Q1: How often do you have a drink containing alcohol? Never 12/28/2024 Q2: How many drinks containi ng alcohol do you have on a typical day when you are drinking? Patient does not drink Q3: How often do you have si x or more drinks on one occasion? Never 12/28/2024 Hunger Vital Sign Answer Date Recorded Within the past 12 months, y ou worried that your food would run out before you got the money to buy more. Never true 08/17/20 24 Within the past 12 months, t he food you bought just didn't last and you didn't have money to get more. Never true 08/17/2024 Personal Safety Answer Date Recorded Have you ever been in or are you currently in a harmful physical or emotional relationship or is someone making you feel afraid or unsafe? 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 Inhaled Oxygen Concentration - - Weight 77.3 kg (170 lb 6.4 oz) 12/28/2024 2:03 P M CDT Height 175.3 cm (5' 9) 12/28/2024 2:03 PM CDT Body Mass Index 25.16 12/28/2024 2:03 PM CDT Plan of Treatment Health Maintenance Due Date Last Done Comments Albumin Creatinine Ratio, Urine 1969 Colon Cancer Screening-Colonoscopy 1969 Depression Screening 1969 Hemoglobin A1C 1969 Dilated Eye Exam 1969 Foot Exam 1969 Lipid Panel 1969 Hepatitis B Screening 1987 Regular Well Visit/Exam 18-64 1987 Zoster Vaccine (1 of 2) 1988 Pneumococcal vaccine <65 (3 of 3 - PCV) 03/22/2020 03/22/2019, 06/01/2017 Covid-19 Vaccine (3 - Modern a risk series) 04/29/2021 04/01/2021, 03/04/2021 Influenza Vaccine (Season Ended) 2025 07/11/2019, 07/11/2019, 08/10/2018, Additional history exists eGFR 12/28/2025 12/28/2024, 06/11, 06/01/2024, Additional history exists Prostate Cancer Screening-PSA 06/01/2026 06/01/2024 DTaP/Tdap/Td Vaccine (4 - Td or Tdap) 06/20/2034 06/20/2024, 02/07/2019, 06/01/2017, Additional history exists Hepatitis C Screening Completed 05/17/2022 Medical Devices Implanted Type Area Well Services Operator Device Identifier Shelf Expiration Date Model / Serial / Lot [employer] Powerport Mri Airguard 8fr 1 Lumen Attachable Catheter Latex Free [id number] - [id number] Implanted:Qty: 1 on 06/25/2022 by Moshe Nina MD at [facility] Right: Chest [employer] [id number] 05/09/2023 [id number] / / [id number] [employer] Avance 1-2mm 70mm Allograft Graft Nerve Sterile [id number] - [id number] Implanted:Qty: 1 on 08/21/2024 by Parmjit Pedro MD at [facility] Right: Ring Finger [employer] 06/09/2026 [id number] / / [id number] Description:1.8 cm of the gr aft implanted Procedures Procedure Name Priority Date/Time Associated Diagnosis Comments EGFR Routine 12/28/2024 1:55 PM CDT 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) DIFFERENTIAL AUTO Routine 12/28/2024 1:5 5 PM CDT 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) COMPREHENSIVE METABOLIC PANEL Routine 12/28/2024 1:55 PM CDT 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) CBC WITH AUTO DIFFERENTIAL Routine 12/28/2024 1:55 PM CDT 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) T4, FREE Routine 12/28/2024 1:55 PM CDT 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 73 m2 Comment: Interpretive Data Reference Interval Normal >/= 90 mL/min/1.73m2 Mildly decreased* 60 - 89 mL/min/1.73m2 Mildly to moderately decreased 45 - 59 mL/min/1.73m2 Moderately to severely decreased 30 - 44 mL/min/1.73m2 Severely decreased 15 - 29 mL/min/1.73m2 Kidney Failure < 15 mL/min/1.73m2 *Relative to young adult level Estimated glomerular filtration rate is determined by the 2020 CKD-EPI equation recommended by the National Kidney Foundation (A Unifying Approach to GFR Estimation: Recommendations of the NKF-ASK Task Force on Reassessing the Inclusion of Race in Diagnosing Kidney Disease, JASN 2020). The CKD-EPI equation should not be used for patients with unstable renal function and has not been validated in children and those over 70. Current interpretive data was last reviewed 2021. Testing performed by: [facility], [facility], [place], [address] Blood 12/28/2024 1:55 PM CDT 12/28/2024 3:25 PM CDT Sebas Cruz MD LAB BLOOD ORDERABLES Final Re sult [facility] ([place]) [facility] [place] [address] * Differential, auto (12/28/2024 1:55 PM CDT) Neutrophil abs 3.4 1.5 - 6.5 K/cumm Comment:Testing performed by : [facility] [address], Medical Office [facility] [address], [place] [address] Imm gran abs 0.0 0.0 - 0.1 K/cumm [facility] ([place]) Comment:Testing performed by : [facility] [address], Medical Office [facility] [address], [place] [address] Lymphocyte abs 2.6 0.8 - 3.3 K/cumm [facility] ([place]) Comment:Testing performed by : [facility] [address], Medical Office [facility] [address], [place] [address] Monocyte abs 0.6 0.2 - 0.8 K/cumm [facility] ([place]) Comment:Testing performed by : [facility] [address], Medical Office [facility] [address], [place] [address] Eosinophil abs 0.3 0.0 - 0.5 K/cumm [facility] ([place]) Comment:Testing performed by : [facility] [address], Medical Office [facility] [address], [place] [address] Basophil abs 0.1 0.0 - 0.1 K/cumm [facility] ([place]) Comment:Testing performed by : [facility] [address], Medical Office [facility] [address], [place] [address] Neutrophil pct 49.1 % [facility] ([place]) Comment: Interpretive Data Percent cell count reference ranges are not reported, since discordance with absolute values may lead to misinterpretation of CBC data. Current Interpretive Data was last revised on 2022. Testing performed by: [facility] [address], Medical Office [address], [place] [address] Imm gran pct 0.1 % [facility] ([place]) Comment: Interpretive Data Percent cell count reference ranges are not reported, since discordance with absolute values may lead to misinterpretation of CBC data. Current Interpretive Data was last revised on 2022. Testing performed by: [facility] [address], Medical Office [address], [place] [address] Lymphocyte pct 37.0 % [facility] ([place]) Comment: Interpretive Data Percent cell count reference ranges are not reported, since discordance with absolute values may lead to misinterpretation of CBC data. Current Interpretive Data was last revised on 2022. Testing performed by: [facility] [address], Medical Office [address], [place] [address] Monocyte pct 9.0 % [facility] ([place]) Comment: Interpretive Data Percent cell count reference ranges are not reported, since discordance with absolute values may lead to misinterpretation of CBC data. Current Interpretive Data was last revised on 2022. Testing performed by: [facility] [address], Medical Office [address], [place] [address] Eosinophil pct 3.8 % [facility] ([place]) Comment: Interpretive Data Percent cell count reference ranges are not reported, since discordance with absolute values may lead to misinterpretation of CBC data. Current Interpretive Data was last revised on 2022. Testing performed by: [facility] [address], Medical Office [address], [place] [address] Basophil pct 1.0 % [facility] ([place]) Comment: Interpretive Data Percent cell count reference ranges are not reported, since discordance with absolute values may lead to misinterpretation of CBC data. Current Interpretive Data was last revised on 2022. Testing performed by: [facility] [address], Medical Office [address], [place] [address] Blood 12/28/2024 1:55 PM CDT 12/28/2024 1:57 PM CDT us Sebas Cruz MD LAB BLOOD ORDERABLES Final Re sult [facility] ([place]) [address] [facility] [place] [address] * (ABNORMAL) CBC with auto differential (12/28/2024 1:55 PM CDT) WBC 6.9 3.8 - 9.9 K/cumm Comment:Testing performed by : [facility] [address], Medical Office [address], [place] [address] Hgb 11.9(L) 13.0 - 17.5 g/dL [facility] ([place]) Comment:Testing performed by : [facility] [address], Medical Office [address], [place] [address] Hct 36.5(L) 38.9 - 50.3 % [facility] ([place]) Comment:Testing performed by : [facility] [address], Medical Office [facility] [address], [place] [address] Plt 294 150 - 400 K/cumm [facility] ([place]) Comment:Testing performed by : [facility] [address], Medical Office [address], [place] [address] MPV 9.6 9.1 - 12.3 fL [facility] ([place]) Comment:Testing performed by : [facility] [address], Medical Office [address], [place] [address] RBC 4.14(L) 4.30 - 5.80 M/cumm [facility] ([place]) Comment:Testing performed by : [facility] [address], Medical Office [address], [place] [address] MCV 88.2 81.3 - 96.4 fL [facility] ([place]) Comment:Testing performed by : [facility] [address], Medical Office [address], [place] [address] MCH 28.7 27.1 - 33.3 pg [facility] ([place]) Comment:Testing performed by : [facility] [address], Medical Office [facility] [address], [place] [address] MCHC 32.6 32.3 - 35.7 g/dL [facility] ([place]) Comment:Testing performed by : [facility] [address], Medical Office [facility] [address], [place] [address] RDW CV 14.4 11.1 - 14.9 % [facility] ([place]) Comment:Testing performed by : [facility] [address], Medical Office [facility] [address], [place] [address] RDW SD 46.5 35.7 - 48.1 fL [facility] ([place]) Comment:Testing performed by : [facility] [address], Medical Office [facility] [address], [place] [address] NRBC abs Not Measured 0.00 - 0.01 K/cumm [facility] ([place]) Comment:Testing performed by : [facility] [address], Medical Office [facility] [address], [place] [address] Blood 12/28/2024 1:55 PM CDT 12/28/2024 1:57 PM CDT Sebas Cruz MD LAB BLOOD ORDERABLES Final Re sult Performing Organization Address City/[facility]/ZIP Co de Phone Number [facility] ([place]) [address] [facility] [place] [address] * (ABNORMAL) TSH (12/28/2024 1:55 PM CDT) Thyroid Stimulating Hormone 5.83(H) 0.30 - 4.20 mcIUnit/mL Comment:Testing performed by : [facility], [facility], [place], [address] Blood 12/28/2024 1:55 PM CDT 12/28/2024 3:25 PM CDT Sebas Cruz MD LAB BLOOD ORDERABLES Final Re sult [facility] ([place]) [address] [place] [address] [place] [address] * T4, free (12/28/2024 1:55 PM CDT) [facility] Free T4 0.95 0.90 - 1.70 ng/dL Comment:Testing performed by : [place], [address] Blood 12/28/2024 1:55 PM CDT 12/28/2024 3:25 PM CDT Sebas Cruz MD LAB BLOOD ORDERABLES Final Re sult [facility] ([place]) [address] [place] [address] [place] [address] * Lactate dehydrogenase (LD) (12/28/2024 1:55 PM CDT) [facility] Lactate dehydrogenase (LDH) 100 100 - 250 Units/L Comment:Testing performed by : [place], [address] Blood 12/28/2024 1:55 PM CDT 12/28/2024 3:25 PM CDT Sebas Cruz MD LAB BLOOD ORDERABLES Final Re sult [facility] ([place]) [address] [place] [address] Department [place] [address] * (ABNORMAL) Comprehensive metabolic panel (12/28/2024 1:55 PM CDT) [facility] Sodium 137 135 - 145 mmol/L Comment:Testing performed by : [place], [address] Potassium, pl 4.0 3.3 - 4.9 mmol/L [facility] ([place]) Comment:Testing performed by : [facility][1], [place], [address] Chloride 102 97 - 110 mmol/L [facility] ([place]) Comment:Testing performed by : [facility][1], [place], [address] CO2 25 22 - 32 mmol/L [facility] ([place]) Comment:Testing performed by : [facility], [facility], [place], [address] Anion gap 10 2 - 15 mmol/L [facility] ([place]) Comment:Testing performed by : [facility][1], [place], [address] BUN 7 6 - 25 mg/dL [facility] ([place]) Comment:Testing performed by : [facility][1], [place], [address] Creatinine 0.76(L) 0.80 - 1.30 mg/dL [facility] ([place]) Comment:Testing performed by : [facility][1], [place], [address] Glucose 83 70 - 199 mg/dL [facility] ([place]) Comment: Interpretive Data Fasting glucose >/= 126 mg/dl is diagnostic for diabetes. Fasting is defined as no caloric intake for at least 8 hours. Fasting glucose between 100 mg/dl to 125 mg/dl is diagnostic of prediabetes. In a patient with classic symptoms of hyperglycemia or hyperglycemic crisis, a random glucose >/= 200 mg/dl is diagnostic for diabetes. In the absence of unequivocal hyperglycemia, results should be confirmed by repeat testing. The classification and Diagnosis of Diabetes Diabetes Care 2021; 46: S19-S40. Current interpretive data was last revised 2022. Testing performed by: [facility][1], [place], [address] Calcium 8.9 8.5 - 10.3 mg/dL [facility] ([place]) Comment:Testing performed by : [facility][1], [place], [address] Bilirubin, total 0.5 0.1 - 1.2 mg/dL [facility] ([place]) Comment:Testing performed by : [facility][1], [place], [address] Protein, pl 7.0 6.5 - 8.5 g/dL [facility] ([place]) Comment:Testing performed by : [facility][1], [place], [address] Albumin 4.4 3.5 - 5.0 g/dL [facility] ([place]) Comment:Testing performed by : [place], [address] Alk phos 76 40 - 130 Units/L [facility] ([place]) Comment:Testing performed by : [facility], [facility], [place], [address] ALT 12 7 - 55 Units/L [facility] ([place]) Comment:Testing performed by : [facility], [facility], [place], [address] AST 15 10 - 50 Units/L [facility] ([place]) Comment:Testing performed by : [facility], [facility], [place], [address] Blood 12/28/2024 1:55 PM CDT 12/28/2024 3:25 PM CDT Sebas Cruz MD LAB BLOOD ORDERABLES Final Re sult Performing Organization Address [facility] Co de Phone Number [facility] ([place]) [address] [place] [address] [place] [address] * PSA diagnostic (06/01/2024 9:20 AM CDT) PSA-Total 2.38 <=3.90 ng/mL Comment: Interpretive Data AGE SEX REFERENCE INTERVAL 0 minutes-150 years Female None 0 minutes-49 years Male None 50-59 years Male 0-3.90 60-69 years Male 0-5.40 70-79 years Male 0-6.20 80-150 years Male 0-6.20 The Tawny PSA Total assay procedure was used. Results from different manufacturers or methods may not be comparable. Serial testing should be performed using the same method. Current interpretive data last revised 22. Testing performed by: [facility], [facility], [place], [address] Blood 06/01/2024 9:20 AM CDT 06/01/2024 10:33 AM CDT Sebas Cruz MD LAB BLOOD ORDERABLES Final Re sult Performing Organization Address [facility] Co de Phone Number [facility] ([place]) [address] [place] [address] [place] [address] * Hepatitis panel, acute (05/17/2022 11:10 AM CDT) Hep A IgM Nonreactive Nonreactive [facility] ([place]) Comment: Interpretive Data: If Hep A IgM Ab is reported as Equivocal, a new sample should be drawn in two weeks for testing. Current interpretive data was last revised on 19. Testing performed by: [facility], [address] [place] [address]., [id number] Hep B core IgM Nonreactive Nonreactive C KATER [facility]YL[facility] ([place]) Comment: Interpretive Data If HepB Core IgM Ab is reported as Equivocal, a new sample should be drawn in two weeks for testing. Current interpretive data was last revised on 19. Testing performed by: [facility], [address] [place] [address]., [id number] Hep C Ab Nonreactive Nonreactive [facility] ([place]) Comment: Interpretive Data Nonreactive: Antibodies to HCV not detected. Does NOT exclude the possibility of recent exposure to HCV. Equivocal: Equivocal for HCV antibodies. Supplemental molecular testing will be automatically performed to determine infection status in accordance with current CDC screening recommendations. Reactive: Positive for HCV antibodies. This may represent current or past HCV infection. Supplemental molecular testing will be automatically performed to determine current infection status in accordance with current CDC screening recommendations. Interpretive data was last revised on 2019. Testing performed by: [facility], [address] [place] [address]., [address] HepBsAg Nonreactive Nonreactive [facility] ([place]) Comment:Testing performed by : [address] [address] Blood 05/17/2022 11:1 0 AM CDT 05/17/2022 2:26 PM CDT Sebas Cruz MD LAB MICROBIOLOGY - GENERAL OR DERABLES Final Result [facility] ([place]) [facility] [place] [address] from Last 3 Months or Most Recently Relevant to Health Maintenance Insurance [facility] Care Teams Mri Technologist Relationship Specialty Start Date End Date Casey Bales DO PCP - General Internal Medicine 02/14/24 Moshe Nina MD Consulting Physician General Surgery 05/17/22 Sebas Cruz MD Medical Oncologist/Deaf/Hard Of Hearing Specialist Hematology and Oncology 11/24/22
--- OUTSIDE RECORDS SUMMARY | 2025-03-11 13:56 | XMS_ITS | Continuity of Care Document ---
Author Name [facility] Organization [facility] Care Team Providers Care Carbonation Equipment Tender Name Role Phone [facility] Unavailable Unavailable Problems Combined list of problems from Department of Defense and [facility] Affairs facilities. It does not include entries that were removed or entered in error. 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 Cannabis dependence Active Condition [facility] Complex posttraumatic stress disorder Active Condition [facility] Depression Active Condition [facility] Diabetes mellitus type 2 Active Condition [facility] Exposure to potentially hazardous substance Active Condition [facility] Hearing loss Active Condition [facility] Heel pain Active Condition [facility] Hodgkin's disease (clinical) Active Condition [facility] Homeless Active Condition [facility] Homelessness Active Condition [facility] Hyperlipidemia Active Condition [facility] Hyp[facility]roidism Active Condition [facility] Leukopenia Active Condition [facility] Major depression Active [facility] Major Depressive Disorder, Recurrent, Moderate (ICD-9-CM 296.32) Active Condition [facility] Neck pain Active Condition [facility] Nicotine dependence Active Condition [facility] Obstructive sleep apnea Active Condition [facility] Proteinuria Active Condition [facility] Substance Abuse * (ICD-9-CM 305.90) Active Condition [facility] Vitamin D deficiency Active Condition [facility] Leukocytosis Inactive Condition 02/09/2023 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 Immunization Series Date Given Administered By Site Reaction Lot Number CVX Code Drug Program Professional Status Comments Source COVID-19 (MODERNA), MRNA, LNP-S, PF, 100 MCG/0.5ML DOSE OR 50 MCG/0.25ML DOSE 2 2020 207 complet ed HISTORICA L INFORMATI ON - SOURCE UNSPECIFI [facility] COVID-19 (MODERNA), MRNA, LNP-S, PF, 100 MCG/0.5ML DOSE OR 50 MCG/0.25ML DOSE 1 2020 207 complet ed HISTORICA L INFORMATI ON - SOURCE UNSPECIFI [facility] HEP A, ADULT 2018 52 complet ed [facility] INFLUENZA, SEASONAL, INJECTABLE 2018 141 complet ed Completed Series, [facility] INFLUENZA, SEASONAL, INJECTABLE, PRESERVATIVE FREE 2018 140 complet ed Completed Series, [facility] PNEUMOCOCCAL POLYSACCHARID E PPV23 2018 [address] complet [address] [facility] TETANUS+DIPHT H TOXOID/ACELL PERTUSSIS (HISTORICAL) 2018 115 complet ed [facility] INFLUENZA, UNSPECIFIED FORMULATION 2017 88 complet ed [facility] INFLUENZA, INTRADERMAL, QUADRIVALENT, PRESERVATIVE FREE 1 2016 166 complet ed HISTORICA L INFORMATI ON - FROM OTHER REGISTRY, [facility] PNEUMOCOCCAL POLYSACCHARID E PPV23 1 2016 33 complet ed HISTORICA L INFORMATI ON - FROM OTHER [facility], [facility] TDAP 1 2016 115 complet ed HISTORICA L INFORMATI ON - FROM OTHER REGISTRY, [facility] INFLUENZA, SEASONAL, INJECTABLE, PRESERVATIVE FREE 2014 140 complet ed [facility] FLU,3 YRS (HISTORICAL) 2012 88 complet ed [facility] FLU,3 YRS (HISTORICAL) 2011 TODD MARTINEZ 88 complet ed [facility] TD(ADULT) UNSPECIFIED FORMULATION 2011 139 complet ed [id number] [facility] Encounters Combined list of: 1) Encounters from Department of [facility] Affairs facilities going backup to the last 18 months, not all MD inpatient encounters are included; 2) Encounters from the Department of [facility] facilities going backup to 280 months. Location Location Details Encounter Type Encounter Number Reason For Visit Attending Provider ADM Date DC Date Status Disposition Source [facility] Outpatient Encounter [id number] EMORY CUELLO C 02/21 [facility] Outpatient Encounter [id number] 03/01 [facility] Outpatient Encounter [id number] 03/15 [facility] Outpatient Encounter [id number] 04/30 [facility] Outpatient Encounter [id number] 05/09 [facility] Outpatient Encounter [id number] 05/25 [facility] DETERMINE REFRACTIVE STATE [id number] Diagnos is: ICD-10- CM D31.32 Benign neoplas m of left choroid JAYDEKem GÓMEZ 12/19 [facility] Outpatient Encounter [id number] 12/20 [facility] Social History Combined list of available smoking, tobacco, and other social history from Department of Defense and Veterans Affairs facilities. Social History Type Response Date Comment Sourc e Tobacco smoking status NHIS VA-TOBACCO USER EVERY DAY 01/26/2023 [facility] of [facility]/26/2023 [facility] History of tobacco use PT DECLINED TOBACCO CESSATION MEDS 07/05/2019 [facility] of [facility] L[facility] DIRECT[facility] NO 05/09/2019 [facility] NO [facility]/26[facility] History of tobacco use QUIT TOBACCO IN THE LAST 12 MONTHS 09/11/2015 [facility] History of tobacco use TOBACCO USE YES 06/14/2014 [facility] History of tobacco use CURRENT TOBACCO USER 02/25/2014 [facility] History of tobacco use TOBACCO MEDICATION INTERVENTION 07/30/2013 [facility] History of tobacco use CURRENT TOBACCO USER 06/29/2013 [facility] History of tobacco use TOBACCO MEDICATION ORDERED 09/11/2012 [facility]
--- OUTSIDE RECORDS SUMMARY | 2025-03-11 13:56 | XMS_ITS | Referral Summary ---
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) 12/28/2024 2:15 PM CDT Office Visit [facility] [address] [place] [address] [address] [place] [id number] Sebas Cruz MD Iron deficiency anemia, unspecified iron deficiency anemia type (Primary Dx); Nodular lymphocyte predominant Hodgkin lymphoma, unspecified body region (HCC); 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) 12/27/2024 Telephone [facility] [address] [place] [address] Office [facility] [address] [place] [phone] Sarah Barrow, QUINCYT 12/11/2024 Telephone [facility] [address] [place] [address] Office [facility] [address] [place] [phone] Sarah Barrow, CLT from Last 3 Months Allergies No known active allergies Medications ergocalciferol (VITAMIN D) 50,000 unit capsule Take 1 capsule (50,000 Units total) by mouth 06/02/20 22 Active tobramycin-dexAMET Hasone (TOBRADEX) ophthalmic solution Administer 2 drops into both eyes 4 (four) times a day IF NO IMPROVEMENT AFTER 2 DAYS SEE PCP OR COMPOUNDER FLAVORINGS . IF IMPROVES AFTER 2 DAYS DECREASE [...] 1 TABLET (25 MCG TOTAL) BY MOUTH EDUCATION PROGRAM COORDINATOR BEFORE BREAKFAST 30 tablet 2 08/15/20 Active Additional Information Patient not taking.Reported on 12/28/2024 meloxicam (MOBIC) 15 mg tablet TAKE 1/2 TABLET BY MOUTH TWO TIMES DAILY 30 tablet 09/11/20 Active Additional Information Patient not taking.Reported on [...] (06/22/2022): Added automatically from request for surgery [id number] Lymphoma, Hodgkin's 06/18/2022 Assessment & Plan (06/22/2022 [...] of knee 06/02/2017 Shortness of breath 06/02/2017 Immunizations Immunization Administration Dates Next Due Hep A, Adult 07/11/2019 Influenza, Quadrivalent, Rec ombinant, Egg Free, Preservative Free, Intramuscular 06/01/2017 Influenza, Quadrivalent, Spl it, Preservative Free, Intradermal 06/01/2017 Influenza, Trivalent, IM (MDV) 07/11/2019 Influenza, Trivalent, Preser vative Free, Intramuscular 07/11/2019,09/11/2015 Influenza, Unspecified 08/10/2018,06/29/2013, Moderna SARS-CoV-2 Monovalen t Vaccination (12+ YRS) 04/01/2021,03/04/2021 Pneumococcal Polysaccharide PPV23 03/22/2019, Td, Unspecified 09/11/2012 Tdap 06/20/2024,02/07/2019,06/01/2017 Social History Tobacco Use Types Packs/Day Years [...] on file Sexual Orientation Not on file Last Filed Vital Signs Vital Sign Reading Time Taken Comments Blood Pressure 120/72 12/28/2024 2:03 PM CDT Pulse 100 12/28/2024 2:03 PM CDT Temperature 36.6 C (97.8 F) 12/28/2024 2:03 PM CDT Respiratory Rate 18 12/28/2024 2:03 PM CDT Oxygen Saturation 96% 08/21/2024 5:16 PM MATERIAL HANDLER FLOORPERSON Inhaled Oxygen Concentration - - Weight 77.3 kg (170 lb 6.4 oz) 12/28/2024 2:03 P M CDT Height 175.3 cm (5' 9) 12/28/2024 2:03 PM CDT Body Mass Index 25.16 12/28/2024 2:03 PM CDT Plan of Treatment Not on file Medical Devices Implanted Type Area Hand Model Device Identifier Shelf Expiration Date Model / Serial / Lot [employer] Powerport Mri Airguard 8fr 1 Lumen Attachable Catheter Latex Free [id number] - [id number] Implanted:Qty: 1 on 06/25/2022 by Moshe Nina MD at [facility] Right: Chest [employer] [id number] 05/09/2023 [id number] / / [id number] [employer] Avance 1-2mm 70mm Allograft Graft Nerve Sterile [id number] - [id number] Implanted:Qty: 1 on 08/21/2024 by Parmjit Pedro MD at [facility] Right: Ring Finger [employer] 06/09/2026 [id number] / / [id number] Description:1.8 cm of the gr aft implanted [...] was last reviewed 2021. Testing performed by: [facility], One [facility], [place], [address] Blood 12/28/2024 1:55 PM CDT 12/28/2024 3:25 PM CDT us Sebas Cruz MD LAB BLOOD ORDERABLES Final Re sult BREA KYLIE (VETERAN) 1 [facility] Department [place] [address] * Differential, auto (12/28/2024 1:55 PM CDT) Neutrophil abs 3.4 1.5 - 6.5 K/cumm Comment:Testing performed by : [facility] [address], Medical Office [facility] [address], [place] [address] Imm gran abs 0.0 0.0 - 0.1 K/cumm [facility] (VETERAN) Comment:Testing performed by : [facility] [address], Medical Office [facility] [address], [place] [address] Lymphocyte abs 2.6 0.8 - 3.3 K/cumm [facility] (VETERAN) Comment:Testing performed by : [facility] [address], Medical Office [facility] [address], [place] [address] Monocyte abs 0.6 0.2 - 0.8 K/cumm [facility] (VETERAN) Comment:Testing performed by : [facility] [address], Medical Office [facility] [address], [place] [address] Eosinophil abs 0.3 0.0 - 0.5 K/cumm [facility] (VETERAN) Comment:Testing performed by : [facility] [address], Medical Office [facility] [address], [place] [address] Basophil abs 0.1 0.0 - 0.1 K/cumm [facility] ([place]) Comment:Testing performed by : [facility] [address], Medical Office [facility] [address], [place] [address] Neutrophil pct 49.1 % [facility] ([place]) Comment: Interpretive Data Percent cell count reference ranges are not reported, since discordance with absolute values may lead to misinterpretation of CBC data. Current Interpretive Data was last revised on 2022. Testing performed by: [facility] [address], Medical Office [facility] [address], [place] [address] Imm gran pct 0.1 % [facility] (SIMONE) Comment: Interpretive Data Percent cell count reference ranges are not reported, since discordance with absolute values may lead to misinterpretation of CBC data. Current Interpretive Data was last revised on 2022. Testing performed by: [facility] [address], Medical Office [facility] [address], [place] [address] Lymphocyte pct 37.0 % [facility] ([place]) Comment: Interpretive Data Percent cell count reference ranges are not reported, since discordance with absolute values may lead to misinterpretation of CBC data. Current Interpretive Data was last revised on 2022. Testing performed by: [facility] [address], Medical Office [facility] [address], [place] [address] Monocyte pct 9.0 % [facility] ([place]) Comment: Interpretive Data Percent cell count reference ranges are not reported, since discordance with absolute values may lead to misinterpretation of CBC data. Current Interpretive Data was last revised on 2022. Testing performed by: [facility] [address], Medical Office [facility] [address], [place] [address] Eosinophil pct 3.8 % [facility] ([place]) Comment: Interpretive Data Percent cell count reference ranges are not reported, since discordance with absolute values may lead to misinterpretation of CBC data. Current Interpretive Data was last revised on 2022. Testing performed by: [facility] [address], Medical Office [facility] [address], [place] [address] Basophil pct 1.0 % [facility] ([place]) Comment: Interpretive Data Percent cell count reference ranges are not reported, since discordance with absolute values may lead to misinterpretation of CBC data. Current Interpretive Data was last revised on 2022. Testing performed by: [facility] [address], Medical Office [facility] B [facility] [address], [place] [address] Blood 12/28/2024 1:55 PM CDT 12/28/2024 1:57 PM CDT us Sebas Cruz MD LAB BLOOD ORDERABLES Final Re sult BREA ESPINAL (SIMONE) 1 [facility] [place] [address] * (ABNORMAL) CBC with auto differential (12/28/2024 1:55 PM CDT) WBC 6.9 3.8 - 9.9 K/cumm Comment:Testing performed by : [facility] [address], Medical Office [facility] B [facility] [address], [place] [address] Hgb 11.9(L) 13.0 - 17.5 g/dL BREA ESPINAL (SIMONE) Comment:Testing performed by : [facility] [address], Medical Office [facility] [address], [place] [address] Hct 36.5(L) 38.9 - 50.3 % BREA ESPINAL (SIMONE) Comment:Testing performed by : [facility] [address], Medical Office [facility] B [facility] [address], [place] [address] Plt 294 150 - 400 K/cumm BREA ESPINAL (SIMONE) Comment:Testing performed by : [facility] [address], Medical Office [facility] B [facility] [address], [place] [address] MPV 9.6 9.1 - 12.3 fL BREA ESPINAL (SIMONE) Comment:Testing performed by : [facility] [address], Medical Office [facility] [address], [place] [address] RBC 4.14(L) 4.30 - 5.80 M/cumm BREA ESPINAL (SIMONE) Comment:Testing performed by : [facility] [address], Medical Office [facility] [address], [place] [address] MCV 88.2 81.3 - 96.4 fL [facility] ([place]) Comment:Testing performed by : [facility] [address], Medical Office [facility] [address], [place] [address] MCH 28.7 27.1 - 33.3 pg [facility] ([place]) Comment:Testing performed by : [facility] [address], Medical Office [facility] [address], [place] [address] MCHC 32.6 32.3 - 35.7 g/dL [facility] ([place]) Comment:Testing performed by : [facility] [address], Medical Office [facility] [address], [place] [address] RDW CV 14.4 11.1 - 14.9 % [facility] ([place]) Comment:Testing performed by : [facility] [address], Medical Office [facility] [address], [place] [address] RDW SD 46.5 35.7 - 48.1 fL [facility] ([place]) Comment:Testing performed by : [facility] [address], Medical Office [facility] B [facility] [address], [place] [address] NRBC abs Not Measured 0.00 - 0.01 K/cumm [facility] (VETERAN) Comment:Testing performed by : [facility] [address], Medical Office [facility] B [facility] [address], [place] [address] Blood 12/28/2024 1:55 PM CDT 12/28/2024 1:57 PM CDT us Sebas Cruz MD LAB BLOOD ORDERABLES Final Re sult BREA ESPINAL (VETERAN) 1 [facility] Department [place] [address] * (ABNORMAL) TSH (12/28/2024 1:55 PM CDT) Thyroid Stimulating Hormone 5.83(H) 0.30 - 4.20 mcIUnit/mL Comment:Testing performed by : [place], [address] Blood 12/28/2024 1:55 PM CDT 12/28/2024 3:25 PM CDT Sebas Cruz MD LAB BLOOD ORDERABLES Final Re sult BREA ESPINAL (VETERAN) [address] [place] [address] Department [place] [address] * T4, free (12/28/2024 1:55 PM CDT) Free T4 0.95 0.90 - 1.70 ng/dL Comment:Testing performed by : [place], [address] Blood 12/28/2024 1:55 PM CDT 12/28/2024 3:25 PM CDT Sebas Cruz MD LAB BLOOD ORDERABLES Final Re sult Performing Organization Address [facility]/ZIP Co de Phone Number BREA ESPINAL (VETERAN) [address] [place] [address] Department [place] [address] * Lactate dehydrogenase (LD) (12/28/2024 1:55 PM CDT) Lactate dehydrogenase (LDH) 100 100 - 250 Units/L Comment:Testing performed by : [place], [address] Blood 12/28/2024 1:55 PM CDT 12/28/2024 3:25 PM CDT Sebas Cruz MD LAB BLOOD ORDERABLES Final Re sult BREA ESPINAL (VETERAN) [address] [place] [address] [place] [address] * (ABNORMAL) Comprehensive metabolic panel (12/28/2024 1:55 PM CDT) Sodium 137 135 - 145 mmol/L Comment:Testing performed by : [facility], [facility], [place], [address] Potassium, pl 4.0 3.3 - 4.9 mmol/L [facility] ([place]) Comment:Testing performed by : [facility], [facility], [place], [address] Chloride 102 97 - 110 mmol/L [facility] ([place]) Comment:Testing performed by : [facility], [facility], [place], [address] CO2 25 22 - 32 mmol/L [facility] ([place]) Comment:Testing performed by : [facility], [facility], [place], [address] Anion gap 10 2 - 15 mmol/L [facility] ([place]) Comment:Testing performed by : [facility], [facility], [place], [address] BUN 7 6 - 25 mg/dL [facility] ([place]) Comment:Testing performed by : [facility], [facility], [place], [address] Creatinine 0.76(L) 0.80 - 1.30 mg/dL [facility] ([place]) Comment:Testing performed by : [facility], [place], [address] Glucose 83 70 - 199 mg/dL [facility] (VETERAN) Comment: Interpretive Data Fasting glucose >/= 126 [...] classification and Diagnosis of Diabetes Diabetes Care 202; 46: S19-S40. Current interpretive data was last revised 2022. Testing performed by: [facility], [place], [address] Calcium 8.9 8.5 - 10.3 mg/dL [facility] ([place]ONE) Comment:Testing performed by : [facility], [place], [address] Bilirubin, total 0.5 0.1 - 1.2 mg/dL [facility] ([place]) Comment:Testing performed by : [facility], [place], [address] Protein, pl 7.0 6.5 - 8.5 g/dL [facility] (VETERAN) Comment:Testing performed by : [facility], [place], [address] Albumin 4.4 3.5 - 5.0 g/dL [facility] (VETERAN) Comment:Testing performed by : [facility], [place], [address] Alk phos 76 40 - 130 Units/L [facility] (VETERAN) Comment:Testing performed by : [facility], [place], [address] ALT 12 7 - 55 Units/L [facility] (VETERAN) Comment:Testing performed by : [facility], [place], [address] AST 15 10 - 50 Units/L [facility] (VETERAN) Comment:Testing performed by : [facility], [place], [address] Blood 12/28/2024 1:55 PM CDT 12/28/2024 3:25 PM CDT us Sebas Cruz MD LAB BLOOD ORDERABLES Final Re sult BREA ESPINAL (VETERAN) 1 [facility] Department [place] [address] * PSA diagnostic (06/01/2024 9:20 AM CDT) [...] data last revised 22. Testing performed by: [facility], [place], [address] Blood 06/01/2024 9:20 AM CDT 06/01/2024 10:33 AM CDT Sebas Cruz MD LAB BLOOD ORDERABLES Final Re sult BREA ESPINAL (SIMONE) 1 [facility] Department [place] [address] * Hepatitis panel, acute (05/17/2022 11:10 AM CDT) Hep A IgM Nonreactive Nonreactive BREA ESPINAL (SIMONE) Comment: Interpretive Data: If Hep A IgM Ab is reported as Equivocal, a new sample should be drawn in two weeks for testing. Current interpretive data was last revised on 19. Testing performed by: [facility], [address] [place] [address]., [address] Hep B core IgM Nonreactive Nonreactive C LUCIUS ESPINAL (SIMONE) Comment: Interpretive Data If HepB Core IgM Ab is reported as Equivocal, a new sample should be drawn in two weeks for testing. Current interpretive data was last revised on 19. Testing performed by: [facility], [address] [place] [address]., [address] Hep C Ab Nonreactive Nonreactive BREA ESPINAL [...] last revised on 2019. Testing performed by: [facility], [address] [place] [address]., [address] HepBsAg Nonreactive Nonreactive BREA ESPINAL (SIMONE) Comment:Testing performed by : [address] [address] Blood 05/17/2022 11:1 0 AM CDT 05/17/2022 2:26 PM CDT Sebas Cruz MD LAB MICROBIOLOGY - GENERAL OR DERABLES Final Result [facility] (VETERAN) 1 [facility] Department [place] [address] from Last 3 Months or Most Recently Relevant to Health Maintenance Insurance [facility] ARNOLDO COLE[facility] OFFICE [facility] CARE [facility] Care Teams Warranty Coordinator Relationship Specialty Start Date End Date Casey Bales DO PCP - General Internal Medicine 02/14/24 Moshe Nina MD Consulting Physician General Surgery 05/17/22 Sebas Cruz MD Medical Oncologist/Relief Charge Nurse Hematology and Oncology 11/24/22
--- OUTSIDE RECORDS SUMMARY | 2025-03-11 13:56 | XMS_ITS | CONTINUITY OF CARE DOCUMENT ---
Author Name trisha thaniabrenda Address Unknown Organization [facility] Address [address] [place] [address] Phone [phone] Care Team Providers Care Small Products Assembler Name Role Phone Jean-Pierre Jimenez MD Unavailable JANINE MARIA MD Unavailable [phone] JANINE MARIA MD Unavailable PROBLEMS Condition Status Date Provider Notes Shortness of breath (SOB) active George Knight Abnormal echocardiogram active Jean-Pierre Jimenez MD Hodgkin lymphoma active Jean-Pierre Jimenez MD Left atrial enlargement active Jean-Pierre Jimenez MD Vertigo active Jean-Pierre Jimenez MD Tobacco abuse active Jean-Pierre Jimenez MD ENCOUNTERS Date Type Provider Location Encounter Diag nosis - In-person encounter Office Visit Jean-Pierre Jimenez MD [facility] - In-person encounter Office Visit Jean-Pierre Jimenez MD [facility] Hodgkin lymphoma - In-person encounter Office Visit Jean-Pierre Jimenez MD [facility] - In-person encounter Office Visit Jean-Pierre Jimenez MD [facility] VertigoLeft atrial enlargement - In-person encounter Office Visit Jean-Pierre Jimenez MD [facility] - In-person encounter Office Visit Jean-Pierre Jimenez MD [facility] Abnormal echocardiogramTobacco abuse VITAL SIGNS Date Observation Value Provider Body Mass Index (Ratio) 27.94 kg/m2 Chiquita Jimenez MD blood pressure, diastolic 64 mm[Hg] [facility] Aneudy blood pressure, systolic 115 mm[Hg] Sta dat Amado oxygen saturation, oximetry 95 % Nette Amado pulse rate 73 /min Nettedat Amado respiratory rate E&M 18 /min Nette nicholson weight E&M 189.2 [lb_av] Nette Amado height E&M 69 [in_i] Nette Amado Body Mass Index (Ratio) 28.50 kg/m2 Chiquita Jimenez MD blood pressure, diastolic -1 mm[Hg] Li nkLogheavenly blood pressure, systolic 122 mm[Hg] Bev Claritzaogheavenly blood pressure, diastolic 70 mm[Hg] An ousmane Reed blood pressure, systolic 122 mm[Hg] Ria Reed oxygen saturation, oximetry 96 % Yanna Reed pulse rate 75 /min Yanna Reed weight E&M 193 [lb_av] Yanna Reed blood pressure, cuff size large An ousmane Reed height E&M 69 [in_i] Yanna Rede Body Mass Index (Ratio) 27.17 kg/m2 Chiquita Jimenez MD blood pressure, cuff size regular Cy kevin Balderas blood pressure, diastolic 70 mm[Hg] Dat Balderas blood pressure, systolic 102 mm[Hg] Julieth Balderas pulse rate 63 /min Jessica urbano respiratory rate E&M 16 /min Jessica Balderas oxygen saturation, oximetry 97 % Jessica Balderas weight E&M 184 [lb_av] Jessica Jauregui l height E&M 69 [in_i] Jessica Aguirrebel l Body Mass Index (Ratio) 28.65 kg/m2 Chiquita Jimenez MD blood pressure, diastolic 80 mm[Hg] Randy Santoro Sahni blood pressure, systolic 122 mm[Hg] Amaris Johnson Sahni oxygen saturation, oximetry 97 % Jesica Sahni respiratory rate E&M 16 /min Marta Sahni pulse rate 72 /min Jesica mcgrath weight E&M 194 [lb_av] Jesica Molina ivanaudrey height E&M 69 [in_i] Jesica Molina ramila Body Mass Index (Ratio) 27.91 kg/m2 Chiquita Jimenez MD blood pressure, cuff size regular Cy kevin Balderas blood pressure, diastolic 80 mm[Hg] Cy kevin Balderas blood pressure, systolic 116 mm[Hg] Julieth karmenmatty Balderas oxygen saturation, oximetry 98 % Jessica Balderas respiratory rate E&M 16 /min Jessica Balderas pulse rate 98 /min Jessicaisidro Jauregui sundeep weight E&M 189 [lb_av] Jessica Jauregui l height E&M 69 [in_i] Jessica Aguirrebel l Body Mass Index (Ratio) 28.79 kg/m2 Chiquita Jimenez MD blood pressure, diastolic 84 mm[Hg] Da kellie Danisha blood pressure, systolic 118 mm[Hg] Dac ia Danisha oxygen saturation, oximetry 95 % Wilma Danisha respiratory rate E&M 16 /min Wilma V oss pulse rate 60 /min Wilma Danisha height E&M 69 [in_i] Wilma Danisha weight E&M 195 [lb_av] Wilma Raman ALLERGIES No Known Drug Allergies RESULTS Date Observation Value Provider Reference Range Interpretation Location 0 magnesium, serum 2.0 mg/dL [facility] 1.6-2.3 0 alanine aminotransferase (SGPT), serum 14 1/L [facility] 0-44 0 aspartate aminotransferase (SGOT), serum 16 1/L [facility] 0-40 0 alkaline phosphatase, serum 81 1/L [facility] 48-121 0 bilirubin, serum, total 0.5 mg/dL [facility] 0.0-1.2 0 albumin/globulin ratio, serum 2.1 [facility] 1.2-2.2 0 globulin, serum 2.2 [facility] 1.5-4.5 0 albumin, serum 4.6 g/dL [facility] 3.8-4.9 0 protein, total, serum 6.8 g/dL [facility] 6.0-8.5 0 calcium, serum 9.4 mg/dL [facility] 8.7-10.2 0 carbon dioxide, venous blood 24 mmol/L [facility] 20-29 0 chloride, serum 105 mmol/L [facility] 96-106 0 potassium, serum 4.9 mmol/L [facility] 3.5-5.2 0 sodium, serum 141 mmol/L [facility] 875-915 7973/08/2 0 urea nitrogen/creatinine ratio, serum 15 [facility] 9-20 0 eGFR if 119 mL/min/{1 .73_m2} [facility] >59 0 eGFR if not 103 mL/min/{1 .73_m2} [facility] >59 0 creatinine, serum 0.79 mg/dL [facility] 0.76-1.27 0 urea nitrogen, blood 12 mg/dL [facility] 6-24 0 blood glucose, random 73 mg/dL [facility] 65-99 HISTORY OF MEDICATION USE Medication Status Instructions Dates Provider Indications Com ments levothyroxine 50 mcg tablet active Take 1 tablet by mouth once a day Jessica Balderas Zofran 4 mg tablet completed 1 tablet by mouth twice a day - 9 Jesica Sahni meclizine 25 mg tablet completed 1 tablet by mouth three times a day - 9 Jesica Sahni OMEPRAZOLE 40 MG ORAL CAPSULE DELAYED RELEASE completed take one daily - 0 Jessica Balderas LEVOTHYROXINE SODIUM TABLET completed take one daily - 0 Jessica Balderas EFFEXOR XR 150 MG ORAL CAPSULE EXTENDED RELEASE 24 HOUR completed take one daily - 0 Jessica Balderas SOCIAL HISTORY Date Observation Value Provider social history E&M S moking History: P athanna currently smokes every day. P atient has been counseled to quit. Jean-Pierre Jimenez MD social history reviewed E&M revi ewed - no changes required Jean-Pierre Jimenez MD smoking/tobacco cess ation, patient education and counseling yes Nette Amado Number of years usin g oral tobacco 35 Nette Amado chewing tobacco use Current Nette Mendoza number of years as a smoker 35 a Nette Amado smoking history, tot al pack/day 0.5 Nette Amado cigarette use yes Nette Amado smoking status Current every day smoker S finn Amado social history reviewed E&M jose manuel ewed - no changes required Jean-Pierre Jimenez MD social history E&M S moking History: P athanna currently smokes every day. P atient has been counseled to quit. Jean-Pierre Jimenez MD smoking/tobacco cess ation, patient education and counseling yes Yanna Reed Number of years usin g oral tobacco 35 Yanna Derek chewing tobacco use Current Yanna calderon number of years as a smoker 35 a Yanna Derek smoking history, tot al pack/day 0.5 Yanna Derek cigarette use yes Yanna Derek smoking status Current every day smoker A marvin Derek social history E&M S moking History: P atient currently smokes every day. P atient has been counseled to quit. Jean-Pierre Jimenez MD social history reviewed E&M revi ewed - no changes required Jean-Pierre Jimenez MD smoking/tobacco cess ation, patient education and counseling yes Jessica Balderas Number of years usin g oral tobacco 35 Jessica Andrey chewing tobacco use Current Jessica Baledras number of years as a smoker 35 a Jessica Andrey smoking history, tot al pack/day 0.5 Jessica Balderas cigarette use yes Jessica díaz smoking status Current every day smoker Davina kameron Balderas alcohol use, average drinks per day social Jean-Pierre Jimenez MD alcohol use yes Jean-Pierre Jimenez MD social history E&M S moking History: P atient currently smokes every day. P atient has been counseled to quit. Jean-Pierre Jimenez MD social history reviewed E&M revi ewed - no changes required Jean-Pierre Jimenez MD smoking/tobacco cess ation, patient education and counseling yes Jesica Sahni Number of years usin g oral tobacco 35 Jesica Sahni chewing tobacco use Current Chano Sahni number of years as a smoker 35 a Jesica Sahni smoking history, tot al pack/day 0.5 Jesica Sahni cigarette use yes Jesica hayward smoking status Current every day smoker M Bertha Sahni social history E&M S moking History: Vazquez guevara is a former smoker. Jean-Pierre Jimenez MD social history reviewed E&M revi ewed - no changes required Jean-Pierre Jimenez MD alcohol use, average drinks per day social Jessica Balderas alcohol use yes Jessica Jauregui l Number of years usin g oral tobacco 35 Jessica Balderas chewing tobacco use Current Jessica Balderas number of years as a smoker 35 a Jessica Balderas smoking history, tot al pack/day /4 Jessica Balderas cigarette use yes Jessica Agarwal ll smoking status Former smoker Jean-Pierre Jimenez MD number of grandchildren Jean-Pierre Jimenez MD U kyle Jimenez MD social history E&M S moking History: Vazquez guevara currently smokes every day. Vazquez guevara has been counseled to quit. Jean-Pierre Jimenez MD social history reviewed E&M revi ewed - no changes required Jean-Pierre Jimenez MD smoking/tobacco cess ation, patient education and counseling yes Jean-Pierre Jimenez MD alcohol use, average drinks per day social Wilma Danisha alcohol use yes Wilma Danisha Number of years usin g oral tobacco 35 Wilma Danisha number of years as a smoker 35 a Wilma Danisha smoking history, tot al pack/day 1/4 Wilma Danisha smoking status Current every day smoker D acia Danisha chewing tobacco use Current Wilma Vo ss cigarette use yes Wilma Danisha FAMILY HISTORY Family Member Condition Full Sister Family History of Co ngestive Heart Failure: Mother Family History of Jami ng Cancer: INSURANCE PROVIDERS Payer name Policy type / Coverage type [facility] ID [place] [employer] (2) Medicaid [id number] ADVANCE DIRECTIVES Name Date DISCUSSED - NO DECISION MADE TREATMENT PLAN Date Name Performer [id number],S,P t is back after getting an echo which showed that he had normal LV function. He has one more cycle of chemotherapy left. In the presence of normal LV function, I don't see any issue completing it. He can proceed with completing it. Jean-Pierre Jimenez MD [id number],S,T he Patient was reencouraged to stop smoking. Jean-Pierre Jimenez MD [id number],C,P t was diagnosed with Hodgkin's lymphoma last year. Has two more chemotherapy regimen left, but stopped one that was affecting his heart. He is on ABVD (Adriamycin [doxorubicin], bleomycin, vinblastine, dacarbazine). Will check an echo to validate the MUGA scan. If it is in fact decreased, will recommend stopping Adriamycin and using a beta nuris and ACEi. Jean-Pierre Jimenez MD [id number],C,P t was diagnosed with Hodgkin's lymphoma last year. Has two more chemotherapy regimen left, but stopped one that was affecting his heart. He is on ABVD (Adriamycin [doxorubicin], bleomycin, vinblastine, dacarbazine). Will check an echo to validate the MUGA scan. If it is in fact decreased, will recommend stopping Adriamycin and using a beta nuris and ACEi. Jean-Pierre Jimenez MD [id number],S,T he Patient was reencouraged to stop smoking. Jaen-Pierre Jimenez MD [id number],C,P t was diagnosed with Hodgkin's lymphoma last year. Has two more chemotherapy regimen left, but stopped one that was affecting his heart. He is on ABVD (Adriamycin [doxorubicin], bleomycin, vinblastine, dacarbazine). Will check an echo to validate the MUGA scan. If it is in fact decreased, willl recommend stopping Adriamycin and using a beta nuris Jean-Pierre Jimenez MD [id number],C,S eems to have recurrent events occurring weekly or every two weeks. Will check 2 week monitor and labs and followup. Jean-Pierre Jimenez MD Cardiology:Pt is shwetha k after getting an echo which showed that he had normal LV function. He has one more cycle of chemotherapy left. In the presence of normal LV function, I don't see any issue completing it. He can proceed with completing it. Jean-Pierre Jimenez MD Cardiology:The Patient was reenc ouraged to stop smoking. Jean-Pierre Jimenez MD Cardiology:Pt was di agnosed with Hodgkin's lymphoma last year. Has two more chemotherapy regimen left, but stopped one that was affecting his heart. He is on ABVD (Adriamycin [doxorubicin], bleomycin, vinblastine, dacarbazine). Will check an echo to validate the MUGA scan. If it is in fact decreased, will recommend stopping Adriamycin and using a beta nuris and ACEi. Jean-Pierre Jimenez MD Cardiology:Pt was di agnosed with Hodgkin's lymphoma last year. Has two more chemotherapy regimen left, but stopped one that was affecting his heart. He is on ABVD (Adriamycin [doxorubicin], bleomycin, vinblastine, dacarbazine). Will check an echo to validate the MUGA scan. If it is in fact decreased, will recommend stopping Adriamycin and using a beta nuris and ACEi. Jean-Pierre Jimenez MD Cardiology:The Patient was reenc ouraged to stop smoking. Jean-Pierre Jimenez MD Cardiology:Pt was di agnosed with Hodgkin's lymphoma last year. Has two more chemotherapy regimen left, but stopped one that was affecting his heart. He is on ABVD (Adriamycin [doxorubicin], bleomycin, vinblastine, dacarbazine). Will check an echo to validate the MUGA scan. If it is in fact decreased, willl recommend stopping Adriamycin and using a beta nuris Jean-Pierre Jimenez MD Cardiology follow up :Seems to have recurrent events occurring weekly or every two weeks. Will check 2 week monitor and labs and followup. Jean-Pierre Jimenez MD Cardiology Jean-Pierre Jimenez MD Cardiology:The Patie nt was reencouraged to stop smoking. Jean-Pierre Jimenez MD Cardiology:Repeat echo. Jean-Pierre cao MD Cardiology:The patie nts description of his sx are suggestive of vertigo but we will r/o any arrhythmias with a 24 hour holter. Jean-Pierre Jimenez MD Cardiology follow up :There was some RV enlargement. Jean-Pierre Jimenez MD Cardiology follow up :Quit Jean-Pierre Jimenez MD Cardiology follow up Jean-Pierre venegas MD Cardiology New Patie nt:The Patient was reencouraged to stop smoking. W ill get PFTs result from [facility], possibly [facility] Jean-Pierre Jimenez MD Cardiology New Patie nt:Will check LUIS FERNANDO with bubble study to rule out ASD. Jean-Pierre Jimenez MD Date Name Complete Echo MAGNESIUM COMPREHENSIVE METABO LIC PANEL, W/EGFR Monitor - Telemetry (Mobile Cardiac) Holter Monitor 24 Hr Complete Echo LUIS FERNANDO - GC HISTORY OF PROCEDURES Procedure Date Procedure Name Provider Procedure Notes S tatus EKG Jean-Pierre Jimenez MD completed Event Monitor Jean-Pierre Jimenez MD comple cheryl Holter, 24 or 48 Jean-Pierre Jimenez MD com pleted EKG Jean-Pierre Jimenez MD completed EKG Jean-Pierre Jimenez MD completed FVC / MVV with bronchodilator - 23797 Jean-Pierre Jimenez MD completed FRC - 53145 Jean-Pierre Jimenez MD complete d SpO2 w/o 6min walk/titration Jean-Pierre Jimenez MD completed DLCO - 14089 Jean-Pierre Jimenez MD complet ed EKG Jean-Pierre Jimenez MD completed
--- OUTSIDE RECORDS SUMMARY | 2025-03-11 13:56 | XMS_ITS ---
Author Organization [facility] Address [address] [place] [address] Care Team Providers Care Horse Exerciser Name Role Phone Moshe Nina MD Unavailable Sebas Cruz MD Unavailable [phone] Casey Bales DO Primary Care Provider [phone] Active Problems Patient Care Coordination No te [...] (06/22/2022): Added automatically from request for surgery [id number] Lymphoma, Hodgkin's 06/18/2022 Assessment & Plan (06/22/2022 [...] of knee 06/02/2017 Shortness of breath 06/02/2017 Current Treatment and Therapy Plans No current plan information found. Past Treatment and Therapy Plans Line Care Plan Name Start Date Discontinue Date Treatment Medications Discontinue Reason Plan Provider IV MAINTENANCE THERAPY PLAN 07/02/2022 12/07/2023 No medications scheduled. Therapy Complete Sebas Cruz MD Oncology Chemotherapy Treatment Plan Name Start Date Discontinue Date Treatment Medications Discontinue Reason Plan Provider Cycles ABVD: DOXOrubicin (ADRIAMYCIN) / Bleomycin / VinBLAStine / Dacarbazine 28 Day Cycles - Hodgkin 2 02/23/2023 bleomycin (BLENOXANE)bleomy judah (BLEOCIN) IVPBdacarbazine (DTIC)dacarbazine (DTIC) IVPBDOXOrubicin (ADRIAMYCIN)DOXOr ubicin (ADRIAMYCIN) 2 mg/mLvinBLAStinev inBLAStine (VELBAN) IVPB in 50 mL Therapy Complete Sebas Cruz MD 6 of 6 cycles started Lifetime Dose Tracking * Chemical Lifetime Dose Automatic Entry Manual Entr y doxorubicin 296.824 mg/m2 (600 mg) 296.824 mg/m2 (600 mg) 0 mg/m2 (0 mg) bleomycin 160.8 Units 160.8 Units 0 Units Fluoro Time 0.285 minutes 0.285 minutes 0 minutes doxorubicin isotoxic equivalent (Please manually verify calculation) 296.824 mg/m2 (600 mg) 296.824 mg/m2 (600 mg) 0 mg/m2 (0 mg) Air kerma at the reference point (Ka,r) 1.9 mGy 1.9 mGy 0 mGy
--- OUTSIDE RECORDS SUMMARY | 2025-03-11 13:56 | XMS_ITS | Clinical Summary ---
Author Organization [facility] Address [address] [place] [address] Phone Care Team Providers Care Coyote Hunter Name Role Phone Alberta Cook MD Primary Care Provider Allergies No known active allergies Medications baclofen (LIORESAL) 10 MG Tablet Take 10 mg by mouth 3 times daily. Active levothyroxine (SYNTHROID) 50 MCG Tablet Take 50 mcg by mouth daily. Active naproxen (NAPROSYN) 500 MG Tablet Take 500 mg by mouth 2 times daily (with meals). Active nitrofurantoin (MACRODANTIN) 100 MG Capsule Take 100 mg by mouth every 6 hours. Active prazosin (MINIPRESS) 2 MG Capsule Take 2 mg by mouth nightly. Active albuterol (PROVENTIL HFA) 108 (90 Base) MCG/ACT Aerosol Solution take 2 Puffs by inhalation every 4 hours as needed. Active raNITIdine (ZANTAC) 150 MG Tablet Take 150 mg by mouth 2 times daily. Active Family History Medical History Relation Name Comments Alcohol Abuse Mother Depression Mother Heart Disease Sister Other-comment Sister coronary arter iosclerosis Relation Name Status Comments Mother Sister Social History Tobacco Use Types Packs/Day Years Used Date Smoking Tobacco: Former Smokeless Tobacco: Never Alcohol Use Standard Drinks/Week Comments Yes 0 (1 standard drink = 0.6 oz pur e alcohol) occasional Sex and Gender Information Value Date Recorded Sex Assigned at Not on file Legal Sex Male 1:07 PM CDT Gender Identity Not on file Sexual Orientation Not on file Plan of Treatment Health Maintenance Due Date Last Done Comments Hepatitis C Virus (HCV) Screening 1969 Hepatitis B Immunization (1 of 3 - 19+ 3-dose series) 1988 Colonoscopy 2014 Colorectal Cancer Screening 2014 Cologuard 2019 Immunochemical Fecal Occult Blood 2019 Pneumococcal Immunization (5 0+ years) (2 of 2 - PCV) 2019 06/01/2017 Zoster Immunization (1 of 2) 2019 PSA Discussion 2024 Influenza Immunization (#1) 2024 06/01/2017 SARS-COV-2 Immunization ( - 2023- season) 2024 04/01/2021, 03/04/2021 Respiratory Syncytial Virus (RSV) Immunization (Adult) (1 - 1-dose 75+ series) 2044 DTaP/Tdap/Td Immunization Discontinued 06/01/2017 Pneumococcal Immunization Combined Discontinued 06/01/2017 TdaP Immunization Completed 06/01/2017 Meningococcal Immunization (ACWY) Aged Out No longer eligible based on patient's age to complete this topic Rotavirus Immunization Aged Out No lo nger eligible based on patient's age to complete this topic Insurance MEDICAID [place] Care Teams Coyote Hunter Relationship Specialty Start Date End Date Paolag Alberta Borrero MD [address] [place] [address] [address] [place] [address] PCP - General Family Medicine 06/02/17
== END 2025-03-11 13:41 | disposition home or self-care (01) ==
LOC: ANHAUDIO 13:40
PROVIDERS: PCP Internal Medicine; Visit Provider Otolaryngology
DX: H90.6 Mixed conductive and sensorineural hearing loss, bilateral (principal); H93.13 Tinnitus, bilateral; H92.09 Otalgia, unspecified ear; H72.02 Central perforation of tympanic membrane, left ear; H65.491 Other chronic nonsuppurative otitis media, right ear; H74.8X1 Other specified disorders of right middle ear and mastoid; H74.92 Unspecified disorder of left middle ear and mastoid; Z96.22 Myringotomy tube(s) status
CPT/HCPCS: 92557; 92567

== ENCOUNTER 2025-04-04 14:28 | Emergency (ER) | payer OTHER, SELFPAY ==
[2025-04-04 14:50] VITALS: BP 134/73; PULSE 67; RESP 16; TEMP 36.6; O2SAT 100
--- NOTE | 2025-04-04 14:58 | ED_ITS ---
HPI - Skin/Abscess/Foreign Bdy General Chief complaint: Skin/Abscess/Foreign Body Stated complaint: Rash Source: patient Mode of arrival: ambulatory Limitations: no limitations History of Present Illness HPI narrative: Patient is a 55-year-old male who presents to the clinic with complaints of an itchy rash to his neck x 3 weeks. He has not been taking anything over the counter. He states that he was seen in the ER two months ago and was treated for folliculitis on his neck. Denies any fevers, body aches, chills, nausea, vomiting, or diarrhea. Related Data Allergies Allergy/AdvReac Type Severity Reaction Status Date / Time No Known Allergies Allergy Verified 04/04/25 15:02 Review of Systems Review of Systems: CONSTITUTIONAL: Denies body aches, fever, chills, or sweats. EYES: Denies visual changes, redness, or discharge. ENT: Denies rhinorrhea, congestion CARDIOVASCULAR: Denies chest pain, palpitations, or edema. RESPIRATORY: Denies cough or dyspnea. GASTROINTESTINAL: Denies abdominal pain, nausea, vomiting, or diarrhea. SKIN: ? Reports a rash to his neck. MUSCULOSKELETAL: Denies back pain, joint pain, or myalgia. NEUROLOGIC: Denies headache, numbness, tingling, or weakness. All systems reviewed & are unremarkable except as noted in HPI and below PMFSH Past Medical History Medical History Cardiomyopathy Diabetes Hodgkins lymphoma 2023 History of blood clots DVT right arm 2022 Surgical History Surgical History No history of previous surgery Social History Social History Smoking status: Current some day smoker Tobacco type: cigarettes Second hand tobacco smoke exposure: Yes Additional smoking assessment comments: 1PPD (01/14/25) Alcohol intake: never Substance use: never Substance use type: does not use Do You Feel Safe in your Home?: Yes Lack of Transportation: No Lack of Food: Never True Current Housing: I Have Housing Concerned About Future Housing: No Difficulty Paying Gas/Electric Bills: No Difficulty Paying for Meds: No Currently Unemployed: No Education: High School Diploma/GED Difficulty w/ Childcare or Family Care: No Living arrangements: with family Gender identity (if verbalized by the patient): Male Spiritual care concerns: No Comments At time of signature, I have reviewed and agree with nursing past medical, surgical, social and family history unless otherwise noted. Please see nursing chart for further information. There is no relevant family history pertinent to the presenting complaint. Exam Narrative: GENERAL: Well-appearing HEAD: Normocephalic, atraumatic. EYES: ?conjunctivae clear, and EOMI. ENT: Mucous membranes moist. Oropharynx without edema, erythema or lesions. NECK: Supple. No lymphadenopathy CHEST: Clear to auscultation. HEART: Regular rate and rhythm. SKIN: Warm, dry. ?Erythemic, itchy papules noted to right side of neck with edema. No warmth. NEURO: ?Alert and oriented x3.? Course Course Level of Care: Express Care Visit Vital Signs Vital signs: Vital Signs Temperature 97.9 F 04/04/25 14:50 Pulse Rate 67 04/04/25 14:50 Respiratory Rate 16 04/04/25 14:50 Blood Pressure 134/73 04/04/25 14:50 Pulse Oximetry 100 04/04/25 14:50 Temperature 97.9 F 04/04/25 14:50 Pulse Rate 67 04/04/25 14:50 Respiratory Rate 16 04/04/25 14:50 Blood Pressure 134/73 04/04/25 14:50 Pulse Oximetry 100 04/04/25 14:50 Reviewed MDM - Skin/Abscess/Foreign Bdy MDM Narrative Medical decision making narrative: Discussed physical exam findings. Keflex and triamcinolone prescription given. Advised supportive measures and signs/symptoms to go to the ER. Pt is appropriate for outpatient treatment and follow up. Differential Diagnosis Differential diagnosis: Likely cellulitis and other ( Folliculitis) Critical Care Time Critical Care Time Critical Care Time: No Discharge Plan Discharge Clinical Impression: Folliculitis Patient Disposition: Home Condition: Stable Instructions: Folliculitis (ED) Additional Instructions: Keep the area clean and dry - cleanse with warm water and mild soap and allow to fully dry. Take antibiotic as prescribed. apply the steroid ointment as directed Keep it open to air as much as possible Watch for worsening symptoms including pain, redness, swelling, fever. Go to the ER with any of these symptoms or concerns. Follow up with primary care provider in 1 week as needed Patient Language: Greenlandic Prescriptions: New triamcinolone acetonide 0.1 % cream 1 applic topical BID Qty: 30 0RF cephalexin 500 mg capsule 500 mg PO TID 7 Days Qty: 21 0RF No Action triamcinolone acetonide 0.1 % cream 1 applic topical BID Qty: 80 0RF prednisone 10 mg tablet 10 mg PO DAILY Qty: 14 1RF Rx Instructions: take 1 tablet daily with breakfast for 2 weeks and then stop Follow-up/Referrals: Casey Bales, DO [Primary Care Provider] - Stand Alone Forms: Work/School Release IP Time of Disposition: 15:00
== END 2025-04-04 15:10 | disposition home or self-care (01) ==
PROVIDERS: PCP Internal Medicine
DX: L73.9 Follicular disorder, unspecified (principal); I42.9 Cardiomyopathy, unspecified; E11.9 Type 2 diabetes mellitus without complications; Z85.71 Personal history of Hodgkin lymphoma; Z86.718 Personal history of other venous thrombosis and embolism
CPT/HCPCS: 99213; G0463

== ENCOUNTER 2025-07-29 09:26 | Emergency (ER) | payer OTHER, SELFPAY ==
--- NOTE | ~2025-07-29 | CT_ITS ---
EXAMINATION: CT lumbar spine wo con DATE: 07/29/2025 11:46 CDT INDICATION: Lower back pain. Right lower back pain. TECHNIQUE: Computed tomography (CT) of the lumbar spine was performed without intravenous contrast. The dose-length product was 768.22 mGy-cm. COMPARISON: None FINDINGS: Lumbar vertebral body heights are within normal limits. No compression fracture in the lumbar spine. Grade 1 retrolisthesis of L5 on S1. Severe intervertebral disc space narrowing at the L5-S1 level. At the L4-5 level, there is a moderate-sized broad-based disc bulge causing moderate narrowing of the spinal canal. Moderate narrowing of the left lateral recess. Mild narrowing of the right lateral recess. Mild narrowing of the left neural foramen and right neural foramen. At the L5-S1 level, degenerative change in the facet joints. Small broad-based disc osteophyte complex. Severe narrowing of the bilateral lateral recesses. Moderate to severe narrowing of the bilateral neural foramen. IMPRESSION: 1. Grade 1 retrolisthesis of L5 on S1. 2. Severe intervertebral disc space narrowing at the L5-S1 level. 3. At the L4-5 level, there is a moderate-sized broad-based disc bulge causing moderate narrowing of the spinal canal. Moderate narrowing of the left lateral recess. Mild narrowing of the right lateral recess. Mild narrowing of the left neural foramen and right neural foramen. 4. At the L5-S1 level, degenerative change in the facet joints. Small broad- based disc osteophyte complex. Severe narrowing of the bilateral lateral recesses. Moderate to severe narrowing of the bilateral neural foramen. Reviewed, dictated and finalized at location Q. IMPRESSION: 1. Grade 1 retrolisthesis of L5 on S1. 2. Severe intervertebral disc space narrowing at the L5-S1 level. 3. At the L4-5 level, there is a moderate-sized broad-based disc bulge causing moderate narrowing of the spinal canal. Moderate narrowing of the left lateral recess. Mild narrowing of the right lateral recess. Mild narrowing of the left neural foramen and right neural foramen. 4. At the L5-S1 level, degenerative change in the facet joints. Small broad-bas ed disc osteophyte complex. Severe narrowing of the bilateral lateral recesses. Moderate to severe narrowing of the bilateral neural foramen.
[2025-07-29 09:43] VITALS: BP 130/75; PULSE 52; RESP 22; TEMP 36.6; O2SAT 100
--- OUTSIDE RECORDS SUMMARY | 2025-07-29 10:28 | XMS_ITS | Clinical Summary ---
Author Organization [facility] Address [address] [place] [address] Phone Care Team Providers Care Chef & Owner Name Role Phone Alberta Cook MD Primary [...] of 3 - 19+ 3-dose series) 1988 Cologuard 2014 Colonoscopy 2014 Colorectal Cancer Screening 2014 Immunochemical Fecal Occult Blood 2014 Pneumococcal Immunization (5 0+ years) (2 of 2 - PCV) 2019 06/01/2017 Zoster Immunization (1 of 2) 2019 Influenza Immunization (#1) 2025 06/01/2017 SARS-COV-2 Immunization (3 - 2024- season) 2025 04/01/2021, 03/04/2021 Respiratory Syncytial Virus (RSV) Immunization (Adult) (1 - 1-dose 75+ series) 2044 DTaP/Tdap/Td Immunization Discontinued 06/01/2017 Pneumococcal Immunization Combined Discontinued 06/01/2017 TdaP Immunization Completed 06/01/2017 Human Papillomavirus (HPV) Immunization Aged Out No longer eligible based on patient's age to complete this topic Meningococcal Immunization (ACWY) Aged Out No longer eligible based on patient's age to complete this topic Rotavirus Immunization Aged Out No lo nger eligible based on patient's age to complete this topic Insurance * Guarantor: Obed Marvin Account Type Relation to Patient Date of Phone Billing Address Personal/Family Self 1970 [address] [place] [address] [place] Care Teams Chef & Owner Relationship Specialty Start Date End Date Hsiang Alberta Borrero MD [address] [place] [address] [address] [place] [id number] PCP - General Family Medicine 06/02/17
--- OUTSIDE RECORDS SUMMARY | 2025-07-29 10:29 | XMS_ITS ---
Author Organization [facility] Building [address] Address [address] [place] [address] Care Team Providers Care Solid State Tester Name Role Phone Moshe Nina MD Unavailable Sebas Cruz MD Unavailable [phone] Casey Bales DO Primary Care Provider Active Problems Patient Care Coordination No te [...] (06/22/2022): Added automatically from request for surgery [id number] Lymphoma, Hodgkin's 06/18/2022 Assessment & Plan (06/22/2022 [...]
--- OUTSIDE RECORDS SUMMARY | 2025-07-29 10:29 | XMS_ITS | Clinical Summary ---
Author Organization [facility] Medical Office Building [address] Address [address] [place] [address] Care Team Providers Care Restaurant Front Manager Name Role Phone Moshe Nina MD Unavailable Sebas Cruz MD Unavailable [phone] Casey Bales DO Primary Care Provider Allergies No known active allergies Medications No known medications Active Problems Patient Care Coordination No te [...] (06/22/2022): Added automatically from request for surgery [id number] Lymphoma, Hodgkin's 06/18/2022 Assessment & Plan (06/22/2022 [...] Encounters Date Type Department Care Team Description 06/27/2025 Telephone [facility] [address] [place] [address] Medical Office [facility] [address] [address] Sarah Barrow, CLT from Last 3 [...] (HCC) 06/18/2022 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 Chemotherapy induced neutropenia 09/15/2022 Lung disease DVT of axillary vein, acute (HCC) right arm Diabetes mellitus CINV (chemotherapy-induced nausea and vomiting) 10/18/2022 Social History Tobacco Use Types Packs/Day Years Used Date Smoking Tobacco: Every Day Cigarettes 0.4 3.1 Started: 06/24/2022 Passive Smoke Exposure: Current Smokeless [...] Sign Reading Time Taken Comments Blood Pressure 131/71 03/27/2025 2:58 PM CDT Pulse 65 03/27/2025 2:58 PM CDT Temperature 36.4 C (97.5 F) 03/27/2025 2:58 PM CDT Respiratory Rate 20 03/27/2025 2:58 PM CDT Oxygen Saturation 100% 03/27/2025 2:58 PM CDT Inhaled Oxygen Concentration - - Weight 76.4 kg (168 lb 6.4 oz) 03/27/2025 2:58 P M CDT Height 175.3 cm (5' 9) 03/27/2025 2:58 PM CDT Body Mass Index 24.87 03/27/2025 2:58 PM CDT Plan of Treatment Health Maintenance [...] risk series) 04/29/2021 04/01/2021, 03/04/2021 Influenza Vaccine (#1) 2025 9, 07/11/2019, 08/10/2018, Additional history exists eGFR 03/27/2026 03/27/2025, 03/2 10/2024, 07/04/2024, Additional history exists Prostate Cancer Screening-PSA 06/01/2026 06/01/2024 DTaP/Tdap/Td Vaccine (4 - Td or Tdap) 06/20/2034 06/20/2024, 02/07/2019, 06/01/2017, Additional history exists Hepatitis C Screening Completed 05/17/2022 Medical Devices Implanted Type Area Fulfillment Representative Device Identifier Shelf Expiration Date Model / Serial / Lot [employer] Powerport Mri Airguard 8fr 1 Lumen Attachable Catheter Latex Free [id number] - [id number] Implanted:Qty: 1 on 06/25/2022 by Moshe Nina MD at [facility] Right: Chest [employer] [id number] 05/09/2023 [id number] / / [id number] [employer] Avance 1-2mm 70mm Allograft Graft Nerve Sterile [id number] - [id number] Implanted:Qty: 1 on 08/21/2024 by Parmjit Pedro MD at [facility] Right: Ring Finger [employer] 06/09/2026 [id number] / / [id number] Description:1.8 cm of the gr aft implanted Procedures Procedure Name Priority Date/Time Associated Diagnosis Comments EGFR Routine 03/27/2025 2:35 PM CDT 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 73 [...] was last reviewed 2021. Testing performed by: [facility], [facility], [place], [address] Blood 03/27/2025 2:35 PM CDT 03/27/2025 2:53 PM CDT Deanne Jensen NP LAB BLOOD ORDERABLES Final Result Performing Organization Address [facility]/State/ZIP Co de Phone Number [facility]A [facility] ([place]) [address] [place] [address] * PSA diagnostic (06/01/2024 9:20 AM CDT) [...] data last revised 22. Testing performed by: [facility], [facility], [place], [address] Blood 06/01/2024 9:20 AM CDT 06/01/2024 10:33 AM CDT Sebas Cruz MD LAB BLOOD ORDERABLES Final Re sult Performing Organization Address City/[facility]/ZIP Co de Phone Number BREA [facility] ([place]) [address] [facility] Department [place] [address] * Hepatitis panel, acute (05/17/2022 11:10 AM CDT) Hep A IgM Nonreactive Nonreactive [facility] ([place]) Comment: Interpretive Data: If Hep A IgM Ab is reported as Equivocal, a new sample should be drawn in two weeks for testing. Current interpretive data was last revised on 19. Testing performed by: [facility], [address] [place] [address], [place]., [address] Hep B core IgM Nonreactive Nonreactive Davina ESPINAL ([place]) Comment: Interpretive Data If HepB Core IgM Ab is reported as Equivocal, a new sample should be drawn in two weeks for testing. Current interpretive data was last revised on 19. Testing performed by: [address] [address] Hep C Ab Nonreactive Nonreactive BREA ESPINAL [...] last revised on 2019. Testing performed by: [facility], [address] [place] [address]., [address] HepBsAg Nonreactive Nonreactive BREA ESPINAL ([place]) Comment:Testing performed by : [address] [address] Blood 05/17/2022 11:1 0 AM CDT 05/17/2022 2:26 PM CDT Seabs Cruz MD LAB MICROBIOLOGY - GENERAL OR DERABLES Final Result BREA [facility] ([place]) [address] [facility] Department [place] [address] from Last 3 Months or Most Recently Relevant to Health Maintenance Insurance [facility] CARE [facility] Care Teams Restaurant Front Manager Relationship Specialty Start Date End Date Casey Bales DO PCP - General Internal Medicine 02/14/24 Moshe Nina MD Consulting Physician General Surgery 05/17/22 Sebas Cruz MD Medical Oncologist/Healthcare Administrative Assistant Hematology and Oncology 11/24/22
[2025-07-29] MEDS: HYDROcodone/acetaminophen (*CRX) 5-325 MG TABLET 1 TAB PO (11:45)
[2025-07-29] MEDS: KETOROLAC (*BKC) 60 MG/2 ML VIAL IM (11:45)
--- NOTE | 2025-07-29 12:13 | ED_ITS ---
HPI - Back Pain/Injury General Chief Complaint: Back Pain/Injury Stated Complaint: lower back pain Time Seen by Provider: 07/29/25 11:00 Source: patient Mode of arrival: ambulatory Limitations: no limitations History of Present Illness HPI Narrative: Patient is a 55-year-old male who presents the ED with report of right lower back pain. Patient reports he was lifting heavy sheet rock yesterday and felt a twinge in his lower back. Complains of pain throughout his lower back since then, worse on right side. Does radiate down his right lower extremity. Reports intermittent tingling in right lower extremity, denies numbness. Denies saddle anesthesia. Denies bowel or bladder incontinence, abdominal pain, difficulty urinating. Related Data Allergies Allergy/AdvReac Type Severity Reaction Status Date / Time No Known Allergies Allergy Verified 07/29/25 09:28 Review of Systems Review of Systems: All systems reviewed & are unremarkable except as noted in HPI. All systems reviewed & are unremarkable except as noted in HPI and below PMFSH Past Medical History Medical History Cardiomyopathy Diabetes Hodgkins lymphoma 2023 History of blood clots DVT right arm 2022 Surgical History Surgical History No history of previous surgery Social History Social History Smoking status: Current some day smoker Tobacco type: cigarettes Second hand tobacco smoke exposure: Yes Additional smoking assessment comments: 1PPD (01/14/25) Alcohol intake: never Substance use: never Substance use type: does not use Do You Feel Safe in your Home?: Yes Lack of Transportation: No Lack of Food: Never True Current Housing: I Have Housing Concerned About Future Housing: No Difficulty Paying Gas/Electric Bills: No Difficulty Paying for Meds: No Currently Unemployed: No Education: High School Diploma/GED Difficulty w/ Childcare or Family Care: No Living arrangements: with family Gender identity (if verbalized by the patient): Male Spiritual care concerns: No Exam Narrative: GENERAL: Appears older than stated age, well-nourished, non-toxic, in no acute distress. HEAD: Normocephalic, atraumatic. RESPIRATORY: Airway patent, respirations nonlabored. Clear to auscultation bilaterally, no rales, rhonchi, wheezing. CARDIOVASCULAR: Regular rate and rhythm without murmurs, rubs, or gallops. MUSCULOSKELETAL: Moves all extremities. No gross deformities. No significant thoracic or lumbar midline spinal tenderness. Tenderness to palpation throughout right lumbosacral region, reproducing pain. Sensation intact. SKIN: Warm, dry, normal color. NEURO: A&O X3. Speech clear. Cranial nerves II-XII grossly intact. Steady gait. No ataxic movements. PSYCHIATRIC: Appropriate mood and affect. Normal interaction. Course Vital Signs Vital signs: Vital Signs Temperature 97.9 F 07/29/25 09:43 Pulse Rate 52 L 07/29/25 09:43 Respiratory Rate 22 H 07/29/25 09:43 Blood Pressure 130/75 07/29/25 09:43 Pulse Oximetry 100 07/29/25 09:43 Oxygen Delivery Room Air 07/29/25 09:43 Temperature 97.9 F 07/29/25 09:43 Pulse Rate 56 L 07/29/25 12:56 Respiratory Rate 14 07/29/25 12:56 Blood Pressure 134/85 07/29/25 12:56 Pulse Oximetry 99 07/29/25 12:56 Oxygen Delivery Room Air 07/29/25 09:43 MDM - Back Pain/Injury MDM Narrative Medical decision making narrative: Patient?s pain is positional and localized to paraspinal muscles without signs of cord compression or cauda equina. Normal neurologic exams. No red flag symptoms. No fever noted and no significant risk factors for osteomyelitis or spinal epidural abscess. No symptoms or signs to suggest pain is referred from abdominal or source. CT scan of lumbar spine was obtained and does show fairly extensive degenerative disc disease. Discussed imaging findings with patient. He is aware of these findings. Discussed high likelihood of muscular strain on top of degenerative disease. Will refer to neurosurgery for further evaluation. Will discharge with course of muscle relaxers, lidocaine patches for home. Patient ambulates with a steady gait and is felt to be a reasonable candidate for continued outpatient management. Given strict return precautions. Patient is in agreement with plan . Discharged in stable condition. Medical Records Attestation: I reviewed the patient's medical records. Imaging Data Attestation: I personally reviewed and interpreted this imaging study as follows: Radiologist's impression: ITS Impressions Lumbar Spine CT 07/29/25 11:45 IMPRESSION: 1. Grade 1 retrolisthesis of L5 on S1. 2. Severe intervertebral disc space narrowing at the L5-S1 level. 3. At the L4-5 level, there is a moderate-sized broad-based disc bulge causing moderate narrowing of the spinal canal. Moderate narrowing of the left lateral recess. Mild narrowing of the right lateral recess. Mild narrowing of the left neural foramen and right neural foramen. 4. At the L5-S1 level, degenerative change in the facet joints. Small broad- based disc osteophyte complex. Severe narrowing of the bilateral lateral recesses. Moderate to severe narrowing of the bilateral neural foramen. Discharge Plan Discharge Clinical Impression: Lumbosacral disc disease Strain of lumbar region Qualifiers: Encounter type: initial encounter Qualified Code(s): S39.012A - Strain of muscle, fascia and tendon of lower back, initial encounter Patient Disposition: Home Condition: Stable Instructions: Antibiotic Form, Acute Low Back Pain (ED), Lumbar Radiculopathy (ED), Degenerative Disc Disease (ED) Additional Instructions: Continue Tylenol and Ibuprofen as needed for pain. [place] as needed for more severe pain. You may use ice/heat, lidocaine patches to area of pain. Take muscle relaxers as needed and prescribed. Recommend taking these at night as they may cause sedation. Do not drive, operate heavy machinery, drink alcohol while on muscle relaxers as this may cause further sedation. Follow-up with your primary care doctor and neurosurgery for further evaluation. Call offices to make appointment. Return to the ED if you experience worsening or severe pain, recurrent injury, numbness in groin or legs, going to the bathroom without meaning to, unable to keep down food or drink, or any other symptoms of concern. Patient Language: Albanian Prescriptions: New hydrocodone-acetaminophen 5-325 mg tablet 1 tablet PO Q6H PRN (Reason: pain) Qty: 5 0RF methocarbamol 750 mg tablet 1,500 mg PO TID PRN (Reason: muscle spasm) Qty: 15 0RF lidocaine 5 % adhesive patch,medicated 1 patch topical DAILY Qty: 15 0RF Rx Instructions: leave on most painful area for up to 12 hrs No Action triamcinolone acetonide 0.1 % cream 1 applic topical BID Qty: 30 0RF triamcinolone acetonide 0.1 % cream 1 applic topical BID Qty: 80 0RF prednisone 10 mg tablet 10 mg PO DIRECTED Qty: 10 1RF Rx Instructions: take 1 tablet daily with breakfast for 7-10 days and then stop Follow-up/Referrals: Roger Danielle MD [Physician, Neurosurgery] Referral Note: NEUROSURGERY Casey Bales, [Primary Care Provider, Internal Medicine] Stand Alone Forms: Work/School Release IP Time of Disposition: 12:22
[2025-07-29 12:56] VITALS: BP 134/85; PULSE 56; RESP 14; O2SAT 99
== END 2025-07-29 12:57 | disposition home or self-care (01) ==
PROVIDERS: Emergency Provider Physician Assistant; PCP Internal Medicine
DX: S39.012A Strain of muscle, fascia and tendon of lower back, initial encounter (principal); F17.210 Nicotine dependence, cigarettes, uncomplicated; E11.9 Type 2 diabetes mellitus without complications; Z85.71 Personal history of Hodgkin lymphoma; Z86.718 Personal history of other venous thrombosis and embolism; X50.0XXA Overexertion from strenuous movement or load, initial encounter
CPT/HCPCS: 72131; 96372; 99284; A9270; J1885; J2919